=== PATIENT | male | born 1960 | race Caucasian/White ===

== ENCOUNTER → 2018-03-16 10:05 | Outpatient (CLI) | payer BC, SELFPAY ==
--- NOTE | 2018-03-16 10:23 | DI.REPORT_ITS ---
SYMPTOMS/DIAGNOSIS: F/U LT TKA LEFT KNEE: Comparison is made with [id number]. A right total knee prosthesis is again noted, unchanged. No abnormal bony lucencies are seen.
== END ==
PROVIDERS: PCP Nurse Practitioner; Visit Provider Orthopaedic Surgery
DX: Z96.652 Presence of left artificial knee joint (principal); Z47.1 Aftercare following joint replacement surgery
CPT/HCPCS: 73560

== ENCOUNTER 2018-12-27 10:40 | Outpatient (REF) | payer SELFPAY ==
[2018-12-27 14:33] LABS: ALT 24 U/L (12-78); AST 20 U/L (15-37); Albumin 4.1 g/dL (3.4-5.0); Alkaline Phosphatase 77 U/L (46-116); Anion Gap 11.8 mmol/L (3-11); BUN 15 mg/dL (7-18); Bilirubin, Total 0.4 mg/dL (0.2-1.0); CO2 24.2 mmol/L (21.0-32.0); CREATININE 1.19 mg/dL (0.70-1.30); Calcium 8.9 mg/dL (8.5-10.1); Chloride 105 mmol/L (98-107); Cholesterol 172 mg/dL (50-200); Glucose 113 mg/dL (70-100); HDL Cholesterol 36 mg/dL (40-60); LDL CHOLESTEROL 112 mg/dL (<100); Potassium 4.6 mmol/L (3.5-5.1); Sodium 141 mmol/L (136-145); Triglyceride 170 mg/dL (30-150)
== END 2018-12-27 11:00 ==
LOC: NCHCN 10:40
PROVIDERS: PCP Nurse Practitioner; Visit Provider Nurse Practitioner
DX: I10 Essential (primary) hypertension (principal)
CPT/HCPCS: 80053; 80061; 83721

== ENCOUNTER 2019-01-31 08:28 | Outpatient (REF) | payer BC, SELFPAY ==
[2019-01-31 13:20] LABS: Hemoglobin A1C 5.9 % (4.5-6.2)
[2019-02-01 07:08] LABS: Vitamin D 25 Total 26.1 ng/ml (30-100)
== END 2019-01-31 08:48 ==
LOC: NCHCN 08:28
PROVIDERS: PCP Nurse Practitioner; Visit Provider Nurse Practitioner
DX: R53.83 Other fatigue (principal)
CPT/HCPCS: 82306; 83036

== ENCOUNTER 2019-01-31 09:41 | Outpatient (CLI) | payer BC, SELFPAY ==
--- NOTE | 2019-01-31 09:39 | DI.RAD_ITS ---
SYMPTOMS/DIAGNOSIS: KNEE PAIN RIGHT KNEE: There is slight narrowing of the medial tibiofemoral joint space. The joint spaces are otherwise unremarkable. The bony structures intact. SUMMARY: Findings consistent with mild right knee DJD.
== END 2019-01-31 10:01 ==
PROVIDERS: PCP Nurse Practitioner; Visit Provider Physician Assistant
DX: M25.561 Pain in right knee (principal); M17.11 Unilateral primary osteoarthritis, right knee
CPT/HCPCS: 73562

== ENCOUNTER 2019-06-19 08:56 | Outpatient (CLI) | payer BC, SELFPAY ==
--- NOTE | 2019-06-19 08:03 | HPE_ITS ---
Date of service: 06/19/19 Assessment and Plan Assessment and plan (1) Primary osteoarthritis of right knee: Status: Chronic Assessment and plan: Right total knee replacement. Details of surgery were discussed with patient as well as risks and pertinent anatomy. All questions were answered. History of Present Illness History of Present Illness Chief Complaint: Right knee pain Narrative: Shane culver omes in today for a preop history and physical for a right total knee replacement. He has had right knee pain for many months now, and it bothers him especially with long periods of ambulation, or going downstairs. He had an injection in that right knee which gave him significant relief, but only for about 1 month. Since then the pain has been coming back. He has had x-rays done in the office which revealed some pretty significant arthritis in the right knee especially on the medial joint line. Since he has failed conservative treatment, Dr. Bello does offer a right total knee replacement at this time. Despite imperfect results on the left side so far, he elects to proceed with a right total knee replacement. Pertinent Surgical Information Shane had a difficult time with urination after his last total knee replacement in 2017. He did have to be catheterized while staying in the hospital due to an inability to void. Patient denies history of CVA, SD, angina, COPD, renal or liver disorders, hepatitis, bleeding disorders, diabetes, immune or thyroid disorders. No complications from anesthesia. Review of Systems Constitutional Constitutional: Denies fever(s) ENT Ears, Nose, Mouth, and Throat: Denies dizziness and Denies sore throat Cardiovascular Cardiovascular: Denies chest pain, Denies chest pain with activity, Denies palpitations and Reports dyspnea on exertion Respiratory Respiratory: Denies cough and Reports dyspnea on exertion Gastrointestinal Gastrointestinal: Denies abdominal pain, Denies melena, Denies hematochezia, Denies diarrhea, Denies nausea and Denies vomiting Genitourinary Genitourinary: Denies hematuria and Denies dysuria Neurologic Neurologic: Denies dizziness Endocrine Endocrine: Denies palpitations [facility] Medical History (Updated 06/19/19 @ 17:10 by ORACIO Kelly) [place] esophagus (Acute) Depression (Chronic) GERD (gastroesophageal reflux disease) (Chronic) History of asthma (Acute) Environmental Hypertension (Chronic) BRAULIO on CPAP (Chronic) Osteoarthritis (Chronic) Surgical History (Updated 06/19/19 @ 17:12 by ORACIO Kelly) History of appendectomy (Chronic) History of colonoscopy (Chronic) History of esophagogastroduodenoscopy (EGD) (Chronic) History of Pastor fundoplication (Chronic) History of tonsillectomy (Chronic) History of total left knee replacement (TKR) (Acute 07/27/17) Dr. Her Social History Smoking/Tobacco Use Status: Former Tobacco Use Drug use: Never Do you feel safe in your relationship?: Yes Meds Home Medications and Allergies Home Medications Medication Instructions Recorded Confirmed Type omeprazole 40 mg PO DAILY 05/19/14 06/19/19 History ondansetron [Zofran ODT] 1 tab PO PRN 06/15/15 06/19/19 History bupropion HCl 300 mg PO DAILY 06/26/17 06/19/19 History ropinirole 0.25 mg PO HS 06/26/17 06/19/19 History hydrochlorothiazide 12.5 mg tablet 12.5 mg PO DAILY 01/31/19 06/19/19 History tramadol 50 mg tablet 50 mg PO BID PRN #14 tab 05/10/19 06/19/19 Rx cholecalciferol (vitamin D3) 1,000 unit PO DAILY 06/19/19 06/19/19 History [Vitamin D3] Allergies Allergy/AdvReac Type Severity Reaction Status Date / Time egg Allergy Intermediate Nausea Unverified 06/19/19 09:08 ibuprofen AdvReac Severe Significant Verified 06/19/19 09:32 hx Barretts, bleeding ulcers, GERD Exam [facility] Head: normocephalic and atraumatic General nose exam: no nasal discharge Throat: uvula midline and no uvular edema Other: soft palate rises symmetrically, no erythema Eyes Conjunctivae: conjunctivae normal Sclera: sclerae normal Pupils: PERRL Resp Effort & Inspection: normal respiratory effort Auscultation: clear to auscultation bilaterally and no wheezes Cardio Rate: regular rate Rhythm: regular rhythm Heart Sounds: S1 normal, S2 normal and no murmurs GI Palpation: soft, no hepatosplenomegaly and nontender Auscultation: normal bowel sounds Results Labs Result diagrams: 06/19/19 10:30 06/19/19 10:30
[2019-06-19 10:48] LABS: HCT 44.8 % (40.0-50.0); HGB 15.6 g/dL (13.5-17.5); Mean Corp. HGB Concentration 34.8 g/dL (32.0-36.0); Mean Corpuscular Hemoglobin 30.7 pg (27.0-33.0); Mean Corpuscular Volume 88.2 fL (80-95); Mean Platelet Volume 10.2 fL (8.0-11.0); Platelet Count 218 x1000/uL (130-400); RBC 5.08 m/cumm (4.50-6.00); RBC Distribution Width 12.3 % (11.8-14.1); White Blood Cell Count 6.33 k/cumm (4.4-10.8)
[2019-06-19 11:48] LABS: Anion Gap 9.4 mmol/L (3-11); BUN 20 mg/dL (7-18); CO2 27.6 mmol/L (21.0-32.0); CREATININE 1.25 mg/dL (0.70-1.30); Calcium 9.3 mg/dL (8.5-10.1); Chloride 104 mmol/L (98-107); Estimated GFR 58.92 (mL/min/1.73m2); Glucose 86 mg/dL (70-100); Potassium 4.6 mmol/L (3.5-5.1); Sodium 141 mmol/L (136-145)
== END 2019-06-19 09:16 ==
PROVIDERS: PCP Nurse Practitioner; Visit Provider Student in an Organized Health Care Education/Training Program
DX: M25.561 Pain in right knee (principal); M17.11 Unilateral primary osteoarthritis, right knee; Z01.818 Encounter for other preprocedural examination; Z01.812 Encounter for preprocedural laboratory examination
CPT/HCPCS: 36415; 80048; 85027; NC

== ENCOUNTER 2019-06-27 12:13 | Inpatient (IN) | payer BC, SELFPAY ==
--- NOTE | 2019-06-19 10:45 | PDOC.CMPRO ---
- If Service Date Differs Date of service: 06/19/19 Time of Service: 10:45 Care Management Progress Note CM met with Shane and his Kaela during his pre op appointment. Shane is scheduled for a total right knee replacement on 06/27/2019. They expressed concern about Shane's prior experience at [facility] when he had his left knee replacement two years ago. They stated that he was here for five days and that his pain was not kept under control. CM reassured them, expressing that a CM will be available to advocate for Shane. Shane and his live in [place] in a single floor residence with 2-3 steps to get in the house. Shane is currently laid off, as he works seasonally. They have two adult children and six grandchildren who all live locally. He has access to a FWW if needed. He is independent at baseline, and his will drive him home when ready via private vehicle. CM provided blank copies of the [place] AD, as requested by Shane and Kaela. Kaela will assist Shane in setting up the Portal. CM provided Shane with CM contact information in the event that they need assistance.
[2019-06-27] VITALS (8 sets, daily range): BP systolic 115–144; BP diastolic 78–98; PULSE 58–82; RESP 12–18; TEMP 36.1–36.5; O2SAT 94–97
[2019-06-27] MEDS: Lactated Ringers 1,000 ML 80 ML IV ×3 (13:01→18:31)
[2019-06-27] MEDS: Celecoxib 200 MG CAP 400 MG PO (13:02)
[2019-06-27] MEDS: Gabapentin 300 MG CAP PO ×2 (13:02→22:20)
[2019-06-27] MEDS: Acetaminophen 500 MG TAB 1000 MG PO ×2 (13:02→19:40)
[2019-06-27] MEDS: Bupivacaine 0.25% Pres-Free 30 ML VIAL ×2 (14:28→16:20)
[2019-06-27] MEDS: ceFAZolin 2 GM/50 ML BAG IVPB (15:01)
[2019-06-27] MEDS: Ketorolac 30 MG/ML VIAL (16:20)
[2019-06-27] MEDS: Normal Saline 20 ML VIAL (16:20)
[2019-06-27] MEDS: Bupivacaine LIPOSOME/PF 133 MG/10 ML VIAL IJ (16:20)
--- NOTE | 2019-06-27 17:20 | W.PM.OP ---
Date of service: 06/27/19 Time of Service: 17:20 Operative Note Operative Note DATE OF PROCEDURE: 06/27/19 PRE-OP DIAGNOSIS: Right Knee Osteoarthritis POST-OP DIAGNOSIS: same PROCEDURE: Right Total Knee Replacement SURGEON: Ottoniel Bello PLASMA TABLE OPERATOR: Disha Trinidad ANESTHESIA: regional and spinal ESTIMATED BLOOD LOSS: 250 PATHOLOGY: none sent TOURNIQUET TIME: 32 COMPLICATIONS: None Patient was transported to: PACU Patient's condition: stable Implants: 1. Depuy Attune Posterior Stabilized Femoral Component, Size 7 2. Depuy Attune Fixed Platform Tibial Component, Size 6 3. Depuy Attune 7x7mm Fixed, Stabilized Poly 4. Depuy Attune Patellar Component, Size 38mm Indications: I have seen Shane in clinic for symptoms of RIGHT knee arthritis, confirmed with radiographic findings. Shane has exhausted nonoperative methods and was having significant limitations in daily function and desired better function and less pain. I discussed the technical details of a knee replacement. I explained the risks of the procedure to include, but not limited to, bleeding, infection, pain, stiffness, fracture, damage to nerves and vessels, damage to muscles and tendons, loosening, need for repeat procedure, blood clot and cardiopulmonary demise. Despite these risks, Shane elected to proceed. Findings: There was significant signs of arthritis throughout the medial compartment with mild arthrosis of the lateral tibia and patella. Procedure Description: Shane was greeted in the preoperative holding area where the correct side was identified and marked. The consent was reviewed with the patient and signed. The history and physical was updated. All questions were answered. Preoperative mediacations were administered: Acetaminophen 1000mg, Celebrex 400mg, and Gabapentin 300mg. An adductor canal block was then administered by the anesthesia team in the PACU. Shane was taken back to the operating room. A spinal anesthestic was then administered. The patient was placed into the supine position on the operating room table. A nonsterile tourniquet was placed high onto the leg but only used for cementing. Posts were placed for positioning during the procedure. All bony prominences were well padded. Prophylactic antibiotics in the form of Cefazolin were administered. 1g of Tranxemic Acid was given intravenously within 30 minutes of incision. The right leg was then prepped with Chloraprep and draped in a standard fashion with impervious stockinette. A second prep with Chloraprep was performed prior to application of Iodine impregnated skin protection. A timeout to confirm correct identity, side and site, procedure, allergies, anesthesia, and medical concerns was performed. With the knee in some flexion, a midline incision was made overlying the knee. Full thickness skin flaps were raised once the extensor mechanism was encountered. These were raised medially and laterally. Any bleeding was controlled with electrocautery. Once the extensor mechanism was fully exposed, a medial parapatellar arthrotomy was performed in a flexed position. All bleeding from the arthrotomy and the geniculate arteries was coagulated. A medial subperiosteal peel was performed with electrocautery to the midcoronal plane. The fat pad was removed while keeping the patellar tendon protected. The anterior distal femur synovium was removed for later visualization. The ACL and PCL were resected and the anterior horn of the lateral meniscus was transected. The knee was then flexed with the patella everted. Large osteophytes from the tibia were removed. Using a step drill, and based on preoperative templating, the femoral canal was entered. This was done with a step drill without any difficulty. The intramedullary distal femoral cut guide was inserted, set to a 5 degree valgus cut and 10mm cut thickness. The distal femoral cut guide was then held in position and pinned. With the soft tissues protected, the distal cut was performed. This was passed over a few times to ensure a planar cut. I then turned attention to the tibia. The extramedullary guide was placed onto the leg. The distal aspect was slid medial to adjust for position of center of ankle and stay in line with shaft of the tibia. Approximately 3-5 degrees of posterior slope was kept in the proximal cutting guide. The center of the guide was aligned with the PCL. The stylus was used to assess cut thickness. The medial side, most involved side, was set for a 4mm cut. This was then held in position and pinned into place with 2 additional pins and a cross pin for stability. The medial and lateral collateral ligaments were protected and the cut was performed. With this completed, it was assessed and noted to be of appropriate dimensions. The guide was removed. A spacer block was inserted and the knee was brought into extension. The 6mm spacer block provided full extension, without hyperextension and with stability of both the medial and lateral collateral ligaments was assessed. The pins from the femur and the tibia were then removed. The distal femur was then sized. The anterior stylus was placed onto the lateral ridge of the anterior femur. This indicated a size 7 femur. The external rotation of the guide was adjusted to 3 degrees to match the epicondylar axis, perpendicular to Mary?s line. The 4-in-1 cutting guide was the placed. The posterior medial femur cut was evaluated and appeared of good thickness. The spacer block was inserted underneath the cutting guide and stability was confirmed in 90 degrees of flexion. An hui wing was used to confirm appropriate position of the anterior cut to avoid notching. This cutting guide was ensured to be flush on the cut surface and then pinned into place with headed pins. While protecting the soft tissues, quad tendon, and collateral ligaments, the anterior and posterior cuts were performed with a saw. The central two pins were removed and the posterior and anterior chamfers were cut next. The notch-cutting guide was placed. This was pinned to lateralize the femoral component as much as possible while keeping it flush on the cut surface. This was then pinned into position. A reciprocating saw was used to make the notch cut. A rasp smoothed the cut surfaces. A trial posterior stabilized femoral component was then inserted, impacted down to the cut surfaces, and the lug holes were drilled. A provisional trial tibial component was placed and the knee was brought through range of motion. The polyethylene was trialed until there was good flexion and extension with excellent stability to the medial and lateral collaterals. The patella was tracking without thumbs. The tibial cut surface was fully exposed. The medial and lateral menisci were removed. The tibia was then sized as a 6. The tibia had been previously marked during trialing to correspond to the center of the tibial component to help with rotation. The trial was aligned to this larissa, approximately rotated to the medial 1/3rd of the tibial tubercle. The trial was pinned into place. The tibia was prepared with a reamer and a keel punch. The knee was then brought into extension and the patella was measured as 27mm. Using the patellar clamp and cut guide, this was resected to a flat surface with at least 13mm of thickness remaining. The size 38 patella fit the best. This was oriented and then clamped into position. The lugs were drilled. The trial components were removed. The final components, except for the polyethylene were opened on the back table. The periosteal and capsular tissues, especially posteriorly, around the knee were then systematically injected with a periarticular cocktail consisting of 50cc 0.25% Marcaine, 30mg Ketorolac, 20cc of Exparal and 50cc of injectable saline. The tourniquet was then inflated to 275mmHg. The knee was thoroughly irrigated with a pulse lavage and dried. On the back table, with the implants opened, the cement was mixed. 2 batches of antibiotic laden cement were prepared with vacuum assistance. After the cement was ready a small amount was placed on to the back side of the tibial component at the keel. A small amount was placed onto the posterior flange of the femur. Cement was manual pressurized and impregnated into the cut surface of the tibia. The tibial component was then inserted into the cut surface and impacted into position. Excess cement was removed and the component was reimpacted. Again, excess cement was removed and our attention was then turned to the femur. The femoral cut surface was once again dried and cement was manually impacted into the cut surface. The femoral component was lined with the lug holes and impacted. Excess cement was removed. It was ensured to be down against the cut surface. The trial polyethylene was then inserted and the leg was brought out into full extension for the duration of the cement curing process, approximately 15min. Cement was lastly manually impacted into the cut surface of the patella and the patellar button was clamped into position and held. During this process attention was turned to the gutters of the knee and for all interfaces for any excess cement. While the cement was hardening, the knee was irrigated with Irrisept chlorhexadine solution. This was allowed to sit in the knee for 3 minutes. After the cement had finally cured, approximately 15min, the clamp was removed from the patella and the knee was taken through range of motion. A size 7mm polyethylene component provided the best range of motion and stability with less than 2mm gapping with medial and lateral stress and full extension without significant hyperextension. The patella was tracking with a no-thumbs technique. The trial poly was removed and once again the knee was checked for any loose, excess, or errant cement. The poly component was then inserted and impacted into position after cleaning and drying the tibial tray. The capsule was then reapproximated with a No. 1 Vicryl at multiple locations. The capsule was finally closed with a No. 2 Stratafix, barbed suture. The tourniquet was then released and the arthrotomy appeared watertight without significant bleeding. The second dosing of 1g TXA was started. Deep tissues were then reapproximated with 0 Vicryl and 2-0 Vicryl. The skin was closed with a running 3-0 Monocryl in a subcuticular fashion. This was reinforced with skin glue. A Mepilex silver dressing was applied along with a [id number] RODRIGUE wrap. A CryoCuff was applied. Shane was transferred to the hospital bed without difficulty an suffering no apparent complication. Shane has a good prognosis. Physical therapy will start today and without restrictions, weight-bearing as tolerated. Aspirin 81mg BID will be used for DVT prophylaxis.
[2019-06-27] MEDS: ceFAZolin 1 GM/50 ML BAG IVPB (22:21)
[2019-06-28 00:14] VITALS: BP 112/71; PULSE 69; RESP 19; TEMP 36; O2SAT 98
[2019-06-28] MEDS: oxyCODONE 5 MG TAB PO ×3 (01:41→13:32)
[2019-06-28 06:05] VITALS: BP 123/75; PULSE 60; RESP 16; TEMP 36.6; O2SAT 98
[2019-06-28] MEDS: ceFAZolin 1 GM/50 ML BAG IVPB ×2 (06:07→13:32)
[2019-06-28] MEDS: Lactated Ringers 1,000 ML 80 ML IV (06:07)
--- NOTE | 2019-06-28 07:43 | W.PM.DS.N ---
Date of service: 06/28/19 Time of Service: 07:45 DS: Diagnosis Discharge Diagnosis (1) Primary osteoarthritis of right knee: Status: Chronic Discharge Plan Disposition Patient Disposition: HOME Condition: Good Discharge Details Reason For Visit: (r) KNEE DJD Admit Date/Time: 06/27/19 12:13 Admit Provider: Ottoniel Bello Attending Provider: Ottoniel Bello Primary Care Provider: Zeynep Hughes Hospital Course Hospital Course: Patient was admitted to the medical/surgical floor following the procedure. It was tolerated well without any notable medical, surgical, or anesthetic complications. Mobilization began postoperatively. The brenner catheter was removed and voiding spontaneously. Vitals were stable. Physical therapy worked with the patient and was cleared for discharge home. No acute medical issues. Home Meds and New Rx's Prescriptions: New celecoxib 200 mg capsule 200 mg PO DAILY Qty: 30 RF: 1 aspirin 81 mg tablet,delayed release (DR/EC) 81 mg PO BID Qty: 60 RF: 0 acetaminophen 500 mg tablet 1,000 mg PO Q8H PRN (Reason: pain) Qty: 90 RF: 3 gabapentin 300 mg capsule 300 mg PO QHS Qty: 7 RF: 0 oxycodone 5 mg tablet 5 mg PO Q4H Qty: 18 RF: 0 Continued hydrochlorothiazide 12.5 mg tablet 12.5 mg PO DAILY RF: 0 omeprazole 40 MG capsule,delayed release(DR/EC) 40 mg PO DAILY RF: 0 ondansetron [Zofran ODT] 4 MG tablet,disintegrating 1 tab PO PRNRF: 0 ropinirole 0.25 MG tablet 0.25 mg PO HS RF: 0 bupropion HCl 300 MG tablet extended release 24 hr 300 mg PO DAILY RF: 0 cholecalciferol (vitamin D3) [Vitamin D3] 1,000 unit Capsule 1,000 unit PO DAILY RF: 0 Discontinued tramadol 50 mg tablet 50 mg PO BID PRN (Reason: pain) Qty: 14 RF: 0 acetaminophen [Acetaminophen Extra Strength] 500 mg Tablet 1,000 mg PO PRN PRNRF: 0 Discharge Instructions Additional Instructions: Dr. Bello?s Total Knee Discharge Instructions Activity: The most important activity is to walk. You should try to take short walks a few times a day. It is important that when resting you work on keeping the knee straight. Avoid putting a pillow behind the knee as this will encourage flexion. Work on range of motion exercises as provided by Physical Therapy. - Start outpatient physical therapy within 2 weeks. - You should wear the WILLIS hose on both legs for 2 weeks. Dressing: Keep the surgical dressing in place for at least one week. After the first week it may be removed and replace with light gauze and tape or nothing. It may get wet after 3 days but avoid soaking the dressing. If it gets wet, just lightly pat dry. Medications: - You should take Tylenol and anti-inflammatory Celebrex as your primary pain control medications - You have been prescribed a stronger pain medication Oxycodone for breakthrough pain, take as needed as prescribed. - You should continue Omeprazole to help reduce stomach acid and reflux. - You will be taking Aspirin 81mg twice a day for DVT prevention unless instructed otherwise. - If you have constipation you should take Colace or Miralax (both [id number]). It takes most people 3-4 days to have a bowel movement. Follow-up: 2 weeks Referrals: Ottoniel Bello MD [ [facility] STAFF PHYSICIAN] - Activity:: Activity as Tolerated Equipment/Supplies:: Walker Diet:: As Tolerated Discharge Orders Discharge Orders: Discharge Order (Routine); Ordered 06/28/19 Ordered By: Ottoniel Bello DS: Summary Status at Discharge Functional status at discharge: uses cane/walker Overall status at discharge: patient is progressing back to baseline Mental Status: mental status grossly normal Speech and Movement: speech and movement normal Mood: congruent mood Affect: normal affect Exam Psych Mental Status: mental status grossly normal Speech and Movement: speech and movement normal Mood: congruent mood Affect: normal affect DS: Data Vitals/I&O Vitals and I&O: Vital Signs Temperature 36 C L 06/28/19 00:14 Temperature Source Tympanic 06/28/19 00:14 Pulse 69 06/28/19 00:14 Pulse Rhythm Regular 06/28/19 00:11 Respiratory Rate 19 06/28/19 00:14 Respiratory Effort 06/28/19 00:11 Respiratory Depth Normal 06/28/19 00:11 Respiratory Pattern Normal 06/28/19 00:11 Blood Pressure 112/71 06/28/19 00:14 Pulse Oximetry 98 06/28/19 00:14 Respiratory End-tidal CO2 32 06/27/19 17:50 Oxygen Delivery Method Cpap 06/28/19 00:14 Oxygen Flow Rate 0 06/27/19 18:49 Pain Level 8 06/28/19 06:06 Intake & Output 06/27/19 06/27/19 06/28/19 11:59 23:59 11:59 Intake Total 2203.333 / 2203.333 1021.333 / 1021.333 Output Total 350 / 350 900 / 900 Balance 1853.333 / 1853.333 121.333 / 121.333 Weight 93.2 kg Intake: IV 1713.333 / 3341.780 9068.333 / 1021.333 Oral 490 / 490 Output: Urine 100 / 100 900 / 900 Estimated Blood Loss 250 / 250 Other: Urine Color Yellow Yellow Straw Urine Appearance Clear Clear Emesis Description None PFSH Medical History [place] esophagus (Acute) Depression (Chronic) GERD (gastroesophageal reflux disease) (Chronic) History of asthma (Acute) Environmental Hypertension (Chronic) BRAULIO on CPAP (Chronic) Osteoarthritis (Chronic) Surgical History History of appendectomy (Chronic) History of colonoscopy (Chronic) History of esophagogastroduodenoscopy (EGD) (Chronic) History of Pastor fundoplication (Chronic) History of tonsillectomy (Chronic) History of total left knee replacement (TKR) (Acute 07/27/17) Dr. Her Social History Smoking/Tobacco Use Status: Former Tobacco Use Drug use: Never Do you feel safe in your relationship?: Yes
[2019-06-28 07:45] VITALS: BP 109/66; PULSE 84; RESP 18; TEMP 36.1; O2SAT 96
[2019-06-28] MEDS: Aspirin E.C. 81 MG TABEC PO (09:08)
[2019-06-28] MEDS: hydroCHLOROthiazide 12.5 MG TAB PO (09:08)
[2019-06-28] MEDS: Omeprazole 20 MG CAPCR 40 MG PO (09:08)
[2019-06-28] MEDS: Cholecalciferol (Vitamin D3) 1,000 UNIT TAB 1000 UNITS PO (09:08)
[2019-06-28] MEDS: buPROPion-XL 150 MG TABCR 300 MG PO (09:08)
[2019-06-28] MEDS: Tamsulosin 0.4 MG CAPCR PO (09:09)
[2019-06-28] MEDS: Acetaminophen 500 MG TAB 1000 MG PO ×2 (09:09→13:33)
--- NOTE | 2019-06-28 10:03 | PT.INIE ---
Date of service: 06/28/19 Time of Service: 09:28 PT Notes Physical Therapy Inpatient Initial Evaluation Date: 06/28/2019 Referring Doctor: Ottoniel Bello MD PT Orders: PT CONSULT: Status post right TKA Precautions: Fall. Standard. WBAT on right LE. Patient Profile/Admitting Diagnosis: Patient is a 58-year-old male who is status post right total knee arthroplasty on POD 1 due to primary unilateral osteoarthritis of right knee. PMHX: Medical History (Updated 06/19/19 @ 17:10 by ORACIO Kelly) Wilson esophagus (Acute) Depression (Chronic) GERD (gastroesophageal reflux disease) (Chronic) History of asthma (Acute) Environmental Hypertension (Chronic) BRAULIO on CPAP (Chronic) Osteoarthritis (Chronic) Surgical History (Updated 06/19/19 @ 17:12 by ORACIO Kelly) History of appendectomy (Chronic) History of colonoscopy (Chronic) History of esophagogastroduodenoscopy (EGD) (Chronic) History of Pastor fundoplication (Chronic) History of tonsillectomy (Chronic) History of total left knee replacement (TKR) (Acute 07/27/17) Dr. Her Social History/Home Situation: Patient lives alone with in a 1 floor house with 2 steps to enter without rails. Patient is independent with all transfer and ambulation task performance without any assistive device prior to admission. Equipment Owned/DME: Front-wheeled walker, bilateral axillary crutches, SPC Subjective: Patient is agreeable to a PT consult. Looks forward to having his Zamudio catheter removed. He denies pain on the right knee. He denies headache, dizziness, and chest pain throughout PT session. He report mild discomfort on the right knee which he attributes to tight OMAR wraps. Patient states that he stayed numb on the right LE for quite a while last night. Objective: General Observation: Patient seen resting in bed upon arrival of PT. Anti-thromboembolic pump on left leg. TEDS on left leg. Omar wraps on right knee. IV in the right UE. Zamudio catheter in place. Mental Status: Alert and oriented x4 Pain: 0/10 ROM: Right Upper Extremity: Shoulder Flexion WFL. Shoulder abduction WFL. Elbow flexion WFL. Wrist flexion WFL. Opening and closing of hand WFL. Left Upper Extremity: Shoulder Flexion WFL. Shoulder abduction WFL. Elbow flexion WFL. Wrist flexion WFL. Opening and closing of hand WFL. Right Lower Extremity: Hip flexion WFL. Hip abduction WFL. Knee flexion 0 to 105 degrees in the standing position done actively. Knee extension -3 degrees. Ankle dorsiflexion WFL. Ankle plantarflexion WFL. Left Lower Extremity: Hip flexion WFL. Hip abduction WFL. Knee flexion WFL. Knee extension -5 degrees. Ankle dorsiflexion WFL. Ankle plantarflexion WFL. Strength: Right Upper Extremity: Shoulder flexors 5/5. Shoulder abductors 5/5. Elbow flexors 5/5. Elbow extensors 5/5. School Child Care Attendant strong. Left Upper Extremity: Shoulder flexors 5/5. Shoulder abductors 5/5. Elbow flexors 5/5. Elbow extensors 5/5. School Child Care Attendant strong. Right Lower Extremity: Hip flexors 5/5. Hip abductors 5/5. Knee flexors 3-/5. Knee extensors 3-/5. Ankle dorsiflexors 5/5. Ankle plantarflexors 5/5. Left Lower Extremity:Hip flexors 5/5. Hip abductors 5/5. Knee flexors 5/5. Knee extensors 3-/5. Ankle dorsiflexors 5/5. Ankle plantarflexors 5/5. Sensation: Intact as to pain and pressure on bilateral lower extremities. Bed Mobility/Transfers: Rolling independent Supine to sit independent Sit to supine independent Sit to stand independent Stand to sit independent Bed to chair independent Chair to bed independent Gait: Patient is able to tolerate level surface ambulation of 120 feet using front wheeled walker with reciprocal gait and symmetrical step length and step height requiring only supervision. He did complain of mild discomfort on the back of the right knee due to tight OMAR wraps. Patient was also able to tolerate three 4 inch steps and two 6 inch steps with step to gait pattern while holding onto bilateral rails requiring only supervision. Balance: Static Sitting: Normal Dynamic Sitting: Normal Static Standing: Good Dynamic Standing: Fair Special Tests: Mobility Limitations Standardized Measure [facility] AM-PAC 6 clicks Basic Mobility Inpatient Short Form: Raw Score: 23 CMS Score: 11% deficit Informed Consent/Education: Patient instructed in purpose of PT consult and plan of care. Patient was also instructed on performing bilateral quadriceps setting, bilateral controlled setting x10 reps as well as ankle pumping x10 reps every hour. Assessment: Patient is a 58-year-old male who is status post right total knee arthroplasty on POD 1 due to primary unilateral osteoarthritis of right knee. He is pleasant and cooperative. He is motivated to return to home soon as he is medically cleared. His prognosis for regaining prior level of function is good. Patient presents with clinical signs and symptoms consistent with current/admitting diagnoses that have resulted to mobility limitations, gait instability, generalized weakness, and impairment of motor control as demonstrated by the following impairment level findings: 1. Decreased strength to R knee major muscle groups 2. Impaired standing balance 3. Limitation of joint range of motion in right knee joint Impairments are contributing to the following functional limitations: 1. Inability to safely ambulate without assistive device and physical assistance 2. Increase completion time for mobility ADL performance 3. Increased fall risk 4. Inability to negotiate steps alone safely Patient is assessed as a 54926 moderate complexity based on the following: History: Patient is a 58-year-old male who is status post right total knee arthroplasty on POD 1 due to primary unilateral osteoarthritis of right knee. He is pleasant and cooperative. He is motivated to return to home soon as he is medically cleared. His prognosis for regaining prior level of function is good. Examination: Demonstrable impairment in strength, balance, and range of motion with underlying impairments and functional limitations as documented above Presentation:Evolving Decision Makin moderate complexity Goals: Goals X1 week 1. Supine-Sit independent 2. Sit-Supine independent 3. Sit-Stand independent 4. Stand-Sit independent 5. Bed-Chair independent 6. Chair-Bed independent 7. Independent gait on level surface with use of least restrictive device for at least 300 feet without report of pain nor dyspnea 8. Independent with home exercise program 9. Good static and dynamic standing balance/tolerance Plan of Care/Treatment Plan: 1-2x/day, 7 days/week x 1 week. Plan of care has been reviewed with the ETCHER MACHINE providing the service under Physical Therapy direction. Initiate Physical Therapy intervention for strengthening, bed mobility, transfers, gait, stairs, balance training, use of assistive device. DISCHARGE RECOMMENDATIONS: May discharge to home with once medically cleared by orthopedic surgeon. May benefit from skilled physical therapy services according to orthopedic surgeon's timeline recommendations. Patient will be educated and trained on home exercise program per TKA exercise protocol in preparation for outpatient physical therapy services. TREATMENT CODE/TIME: 39285 x 33 minutes beginning at 9:28 AM. Thank you very much for this referral. Darlyn Vieyra PT, DPT, CLT [facility]
[2019-06-28 11:05] VITALS: BP 124/84; PULSE 75; RESP 18; TEMP 36.3; O2SAT 95
--- NOTE | 2019-06-28 15:54 | PT.INTREAT ---
Date of service: 06/28/19 Time of Service: 15:54 PT Notes Inpatient Physical Therapy Treatment Note [facility] Date: 06/28/19 SUBJECTIVE: Shane is agreeable to participating in PT. He reports that he is feeling good and feels that he is ready to return to home. OBJECTIVE: PAIN: No c/o pain BED MOBILITY/TRANSFERS Supine-sit: I with HOB flat Sit-stand: I Stand-sit: I GAIT Assistive Device: FWW Weight bearing: WBAT R Assist: I Distance: 200' STAIRS: Up/down 3x4 and 2x6 using B rails and a step-over pattern, independently ASSESSMENT: Patient tolerated session well, without complaint. He was able to demonstrate independence with all bed mobility and transfers, at this point. PLAN: As per primary PT TREATMENT CODE/TIME: 15 minutes; 48113
--- NOTE | 2019-06-29 16:03 | INDS_ITS ---
Date of service: 06/29/19 Time of Service: 16:03 PT Notes Inpatient Physical Therapy Discharge Summary Dates: 06/29/2019 Dates of Service: 06/28/2019 This is a clinical summary of care provided on the duration of dates listed above. No charge was made in the completion of this documentation. Referring Doctor: Ottoniel Bello MD PT Orders: PT CONSULT: Status post right TKA Precautions: Fall. Standard. WBAT on right LE. Patient Profile/Admitting Diagnosis: Patient is a 58-year-old male who is status post right total knee arthroplasty on POD 1 due to primary unilateral osteoarthritis of right knee. PMHX: Medical History (Updated 06/19/19 @ 17:10 by ORACIO Kelly) Wilson esophagus (Acute) Depression (Chronic) GERD (gastroesophageal reflux disease) (Chronic) History of asthma (Acute) Environmental Hypertension (Chronic) BRAULIO on CPAP (Chronic) Osteoarthritis (Chronic) Surgical History (Updated 06/19/19 @ 17:12 by ORACIO Kelly) History of appendectomy (Chronic) History of colonoscopy (Chronic) History of esophagogastroduodenoscopy (EGD) (Chronic) History of Pastor fundoplication (Chronic) History of tonsillectomy (Chronic) History of total left knee replacement (TKR) (Acute 07/27/17) Dr. Her Social History/Home Situation: Patient lives alone with in a 1 floor house with 2 steps to enter without rails. Patient is independent with all transfer and ambulation task performance without any assistive device prior to admission. Equipment Owned/DME: Front-wheeled walker, bilateral axillary crutches, SPC Subjective: NT Objective: General Observation: NT Mental Status: NT Pain: NT ROM: Right Upper Extremity: Shoulder Flexion WFL. Shoulder abduction WFL. Elbow flexion WFL. Wrist flexion WFL. Opening and closing of hand WFL. Left Upper Extremity: Shoulder Flexion WFL. Shoulder abduction WFL. Elbow flexion WFL. Wrist flexion WFL. Opening and closing of hand WFL. Right Lower Extremity: Hip flexion WFL. Hip abduction WFL. Knee flexion 0 to 105 degrees in the standing position done actively. Knee extension -3 degrees. Ank le dorsiflexion WFL. Ankle plantarflexion WFL. Left Lower Extremity: Hip flexion WFL. Hip abduction WFL. Knee flexion WFL. Knee extension -5 degrees. Ankle dorsiflexion WFL. Ankle plantarflexion WFL. Strength: Right Upper Extremity: Shoulder flexors 5/5. Shoulder abductors 5/5. Elbow flexors 5/5. Elbow extensors 5/5. Sorting And Folding Supervisor strong. Left Upper Extremity: Shoulder flexors 5/5. Shoulder abductors 5/5. Elbow flexors 5/5. Elbow extensors 5/5. Sorting And Folding Supervisor strong. Right Lower Extremity: Hip flexors 5/5. Hip abductors 5/5. Knee flexors 3-/5. Knee extensors 3-/5. Ankle dorsiflexors 5/5. Ankle plantarflexors 5/5. Left Lower Extremity:Hip flexors 5/5. Hip abductors 5/5. Knee flexors 5/5. Knee extensors 3-/5. Ankle dorsiflexors 5/5. Ankle plantarflexors 5/5. Sensation: Intact as to pain and pressure on bilateral lower extremities. Bed Mobility/Transfers: Rolling independent Supine to sit independent Sit to supine independent Sit to stand independent Stand to sit independent Bed to chair independent Chair to bed independent Gait: Patient is able to tolerate level surface ambulation of 200 feet using front wheeled walker with reciprocal gait and symmetrical step length and step height requiring only supervision. He did complain of mild discomfort on the back of the right knee due to tight RODRIGUE wraps. Patient was also able to tolerate three 4 inch steps and two 6 inch steps with step to gait pattern while holding onto bilateral rails requiring only supervision. Balance: Static Sitting: Normal Dynamic Sitting: Normal Static Standing: Good Dynamic Standing: Fair Assessment: Patient is a 58-year-old male who is status post right total knee arthroplasty on POD 1 due to primary unilateral osteoarthritis of right knee. He is pleasant and cooperative. He is motivated to return to home soon as he is medically cleared. His prognosis for regaining prior level of function is good. Patient continues to present with clinical signs and symptoms consistent with current/admitting diagnoses that have resulted to mobility limitations, gait instability, generalized weakness, and impairment of motor control as demonstrated by the following impairment level findings: 1. Decreased strength to R knee major muscle groups 2. Impaired standing balance 3. Limitation of joint range of motion in right knee joint Impairments continue to contribute to the following functional limitations: 1. Inability to safely ambulate without assistive device and physical assistance 2. Increase completion time for mobility ADL performance 3. Increased fall risk 4. Inability to negotiate steps alone safely Goals: Goals X1 week 1. Supine-Sit independent MET 2. Sit-Supine independent MET 3. Sit-Stand independent MET 4. Stand-Sit independent MET 5. Bed-Chair independent MET 6. Chair-Bed independent MET 7. Independent gait on level surface with use of least restrictive device for at least 300 feet without report of pain nor dyspnea NOT MET 8. Independent with home exercise program NOT MET 9. Good static and dynamic standing balance/tolerance NOT MET DISCHARGE RECOMMENDATIONS: May discharge to home with once medically cleared by orthopedic surgeon. May benefit from skilled physical therapy services according to orthopedic surgeon's timeline recommendations. Patient will be educated and trained on home exercise program per TKA exercise protocol in preparation for outpatient physical therapy services. TREATMENT CODE/TIME: AL Thank you very much for this referral. Darlyn Vieyra PT, DPT, CLT [facility]
== END 2019-06-28 15:24 | disposition home or self-care (01) | DRG 470 ==
LOC: PDS 12:14 → MS 18:15
PROVIDERS: Admitting Provider Student in an Organized Health Care Education/Training Program; PCP Nurse Practitioner; Visit Provider Student in an Organized Health Care Education/Training Program
PROC: 0SRC0J9 Replacement of Right Knee Joint with Synthetic Substitute, Cemented, Open Approach (ICD-10-PCS; CPT 27447; principal; 2019-06-27 14:45)
DX: M17.11 Unilateral primary osteoarthritis, right knee (principal); M25.561 Pain in right knee; Z96.651 Presence of right artificial knee joint; K21.9 Gastro-esophageal reflux disease without esophagitis; F32.9 Major depressive disorder, single episode, unspecified; I10 Essential (primary) hypertension; G47.33 Obstructive sleep apnea (adult) (pediatric)
CPT/HCPCS: 27447; 76942; 97162; 97530; NC; J0690; J1100; J1885; J2250; J2405

== ENCOUNTER 2019-07-16 14:31 | Outpatient (CLI) | payer BC, SELFPAY ==
--- NOTE | 2019-07-16 13:26 | DI.RAD_ITS ---
EXAM: XR KNEE RT 1V INDICATION: 1st post op. COMPARISON: XR knee RT 3V AP,lat,john from 01/31/2019 TECHNIQUE: 2D digital imaging was performed. FINDINGS: There are now postsurgical changes of a right total knee replacement. The orthopedic hardware appear s in good position. No evidence of hardware failure is seen. The bones are intact. The soft tissue s are unremarkable. IMPRESSION: Right TKR.
--- NOTE | 2019-07-16 13:29 | DI.RAD_ITS ---
EXAM: XR STANDING ALIGNMENT INDICATION: 1st post op. COMPARISON: No exams were available for comparison TECHNIQUE: 2D digital imaging was performed. FINDINGS: The patient has bilateral total knee replacements. The right lower extremity measures 89.6 centimete rs. The left lower extremity measures 89.8 centimeters.
== END 2019-07-16 14:51 ==
PROVIDERS: PCP Nurse Practitioner; Visit Provider Student in an Organized Health Care Education/Training Program
DX: Z96.653 Presence of artificial knee joint, bilateral (principal); Z47.1 Aftercare following joint replacement surgery
CPT/HCPCS: 73560; 77073

== ENCOUNTER 2020-02-21 00:19 | Outpatient (CLI) | payer BC, SELFPAY ==
[2020-02-21 09:12] LABS: CREATININE 1.02 mg/dL (0.70-1.30)
--- NOTE | 2020-02-21 10:09 | DI.CT_ITS ---
EXAM: CT ABDOMEN PELVIS W TECHNIQUE: Imaging Protocol: Axial computed tomography images with coronal and sagittal reformatted images were created and reviewed CONTRAST MATERIAL: Intravenous: Omnipaque 350 Contrast volume: 100 ml Contrast route:IV - Oral: yes COMPARISON: CT ABD PELVIS WITH CONTRAST from 06/15/2015 FINDINGS: There is a small to moderate size hiatal hernia. The lung bases are clear. There are 2 small defec ts in the anterior abdominal wall above the level of the umbilicus which show a small amount of fat h erniating through. There is also small amount of fat at the umbilicus. A few liver cysts are noted. The gallbladder, spleen, adrenals and right kidney are unremarkable. There is a small cyst at the upper pole of the left kidney. The pancreas shows some fatty infiltration. There is a diverticulum of the descending duodenum. There is prominent diverticulosis of the lower descending and proximal si gmoid colon. There is no evidence of diverticulitis. The small bowel is unremarkable. The aorta shows calcification but is normal in diameter. The prostate is mildly enlarged. The bladder is unremarkabl e. IMPRESSION: Two small defects in the midline of the upper the abdominal wall containing a small amount of herniat ed fat. A small fatty containing umbilical hernia is also seen. RADIATION DOSE DELIVERED: Total DLP Total DLP DATA REPOSITORY: All CT scans at this facility are submitted to the National Radiology Data Registry (NRDR) Dose Index Registry (DIR) with the [employer] ([employer]). RADIATION OPTIMIZATION: All CT scans at this facility use at least one of these dose optimization te chniques: automated exposure control; mA and/or kV adjustment per patient size (includes targeted exa ms where dose is matched to clinical indication); or iterative reconstruction.
[2020-02-21] MEDS: Omnipaque 350 MG/ML 100 ML BTL IV (10:10)
[2020-02-21] MEDS: Omnipaque 350 MG/ML 50 ML BTL PO (10:10)
== END 2020-02-21 00:39 ==
PROVIDERS: PCP Nurse Practitioner; Visit Provider Surgery
DX: R19.00 Intra-abdominal and pelvic swelling, mass and lump, unspecified site (principal); K44.9 Diaphragmatic hernia without obstruction or gangrene; K76.89 Other specified diseases of liver; N28.1 Cyst of kidney, acquired; K57.31 Diverticulosis of large intestine without perforation or abscess with bleeding; N40.0 Benign prostatic hyperplasia without lower urinary tract symptoms; K42.9 Umbilical hernia without obstruction or gangrene
CPT/HCPCS: 74177; 82565; J3490; Q9967

== ENCOUNTER 2020-03-02 09:45 | Emergency (ER) | payer BC, SELFPAY ==
[2020-03-02] VITALS (12 sets, daily range): BP systolic 121–159; BP diastolic 70–105; PULSE 60–73; RESP 16–18; TEMP 36.7; O2SAT 96–98
--- NOTE | 2020-03-02 10:15 | DI.CT_ITS ---
EXAM: CT ABDOMEN PELVIS W CLINICAL HISTORY: Known ventral hernias, worse pain, elevated lactat TECHNIQUE: Imaging Protocol: Axial computed tomography images with coronal and sagittal reformatted images were created and reviewed CONTRAST MATERIAL: Intravenous: Omnipaque 350 Contrast volume:100 mL Oral: No COMPARISON: CT CT ABDOMEN PELVIS W from 02/21/2020 FINDINGS: ABDOMEN: Lung Bases: Normal where visualized. Liver: Normal density. Stable hepatic cysts. Portal, Superior Mesenteric, and Splenic Veins: Unremarkable. Gallbladder and Biliary Tract: No radiodense calculus or dilation. Pancreas: Normal density, no abnormal calcifications or inflammatory process. Fatty infiltration. Spleen: Normal. Adrenals: No masses seen. Kidneys: Normal size, contour and axis. No radiodense stones or obstructive uropathy. Stable left clayton al cyst. Abdominal Aorta: Abdominal portion non-dilated. Atherosclerosis. Bowel: No obstruction or bowel wall thickening. No evidence of acute appendicitis. Stable duodenal d iverticula. Hiatal hernia. Colonic diverticulosis without evidence of acute diverticulitis. Peritoneal Cavity: No ascites, collection or mesenteric inflammatory response. Lymph Nodes: Within normal limits. Bones: Degenerative changes. Soft Tissues: Stable anterior abdominal wall fat containing hernia. Stable small fat containing umbi lical hernia. PELVIS: Bladder: Symmetric distention, no gross wall thickening. Reproductive Organs: Enlarged prostate gland. Lymph Nodes: Within normal limits. Bones: Degenerative changes. IMPRESSION: No acute abdominal or pelvic process. RADIATION DOSE DELIVERED: Total DLP DATA REPOSITORY: All CT scans at this facility are submitted to the National Radiology Data Registry (NRDR) Dose Index Registry (DIR) with the [employer] ([employer]). RADIATION OPTIMIZATION: All CT scans at this facility use at least one of these dose optimization te chniques: automated exposure control; mA and/or kV adjustment per patient size (includes targeted exa ms where dose is matched to clinical indication); or iterative reconstruction.
[2020-03-02 10:19] LABS: Lactate 1.8 mmol/L (0.6-1.4)
[2020-03-02 10:21] LABS: Abs Immature Grans 0.04 k/cumm (0.0-0.09); Absolute Basophil Count 0.04 k/cumm (0.0-0.2); Absolute Eosinophil Count 0.22 k/cumm (0.0-0.7); Absolute Lymphocyte Count 1.74 k/cumm (1.2-3.4); Absolute Monocyte Count 0.81 k/cumm (0.11-0.7); Absolute Neutrophil Count 4.16 k/cumm (1.2-6.7); Basophils % 0.6; Eosinophils % 3.1; HCT 44.6 % (40.0-50.0); Immature Grans % 0.6 %; Lymphocytes % 24.8; Mean Corp. HGB Concentration 35.9 g/dL (32.0-36.0); Mean Corpuscular Hemoglobin 31.5 pg (27.0-33.0); Mean Corpuscular Volume 87.8 fL (80-95); Mean Platelet Volume 10.4 fL (8.0-11.0); Monocytes % 11.6; Neutrophils % 59.3; Platelet Count 215 x1000/uL (130-400); RBC 5.08 m/cumm (4.50-6.00); RBC Distribution Width 12.3 % (11.8-14.1); White Blood Cell Count 7.01 k/cumm (4.4-10.8)
[2020-03-02 10:25] LABS: Bilirubin Negative (Negative); Blood Negative (Negative); Clarity Clear (Clear); Glucose Negative (Negative); Ketones Negative (Negative); Leukocyte Esterase Negative (Negative); Nitrite Negative (Negative); Urobilinogen 0.2 EU/dL (Up TO 0.2); pH 5.5 (5-8)
[2020-03-02 10:39] LABS: ALT 26 U/L (16-63); AST 20 U/L (15-37); Albumin 4.3 g/dL (3.4-5.0); Alkaline Phosphatase 93 U/L (46-116); Anion Gap 9.9 mmol/L (3-11); BUN 16 mg/dL (7-18); Bilirubin, Total 0.7 mg/dL (0.2-1.0); CO2 27.1 mmol/L (21.0-32.0); CREATININE 1.18 mg/dL (0.70-1.30); Calcium 8.7 mg/dL (8.5-10.1); Chloride 103 mmol/L (98-107); Glucose 133 mg/dL (74-106); Lipase 237 U/L (73-393); Potassium 4.1 mmol/L (3.5-5.1); Sodium 140 mmol/L (136-145); Total Protein 7.5 g/dL (6.4-8.2)
[2020-03-02] MEDS: Omnipaque 350 MG/ML 100 ML BTL IJ (10:54)
[2020-03-02] MEDS: Normal Saline - Diluent 50 ML VIAL IV (10:54)
[2020-03-02] MEDS: Normal Saline 1,000 ML 1000 ML IV (11:08)
--- NOTE | 2020-03-02 12:14 | ED.GENADUL_ITS ---
Discharge Plan Disposition Patient Disposition: HOME Condition: Stable Discharge Details Chief Complaint: Abd Prob Clinical Impression: Abdominal pain Primary Care Provider: Zeynep Hughes ED Provider: Kong Dixon Home Meds and New Rx's Prescriptions: Continued hydrochlorothiazide 12.5 mg tablet 12.5 mg PO DAILY RF: 0 diazepam [Valium] 5 mg tablet 5 mg PO BID PRN (Reason: muscle spasm) Qty: 14 RF: 0 omeprazole 40 MG capsule,delayed release(DR/EC) 40 mg PO DAILY RF: 0 ondansetron [Zofran ODT] 4 MG tablet,disintegrating 1 tab PO PRN PRNRF: 0 ropinirole 0.25 MG tablet 0.25 mg PO HS RF: 0 bupropion HCl 300 MG tablet extended release 24 hr 300 mg PO DAILY RF: 0 acetaminophen 500 mg tablet 1,000 mg PO Q8H PRN (Reason: pain) Qty: 90 RF: 3 Discharge Instructions Instructions: Abdominal Pain (ED) Additional Instructions: At this time your laboratory values and CT do not reveal any obvious emergent process. As we discussed, a bowel rest over the next couple of days. I will have this note forwarded to your surgical team, I recommend following up on Tuesday with them as already scheduled. Please watch for new or worsening symptoms and return to the ER for any concerns Discharge Data Discharge Date/Time-TO BE ENTERED AT DEPARTURE: 03/02/20 12:54 Medical Decision Making <ORACIO Costa - Last Filed: 03/02/20 13:10> 59-year-old gentleman who is currently under surgical care as an outpatient presents to the ER for evaluation of worsening abdominal pain. He does have history of a Pastor procedure, hypertension, GERD, Wilson's esophagus. He denies fever, radiating pain, blood in his stools or black tarry stools. He appears well, nontoxic. Examination reveals diffusely mildly tender abdomen, slightly worse over the palpable ventral hernia that is able to be partially reduced. Abdomen at this time does not appear to be surgical. Will obtain routine laboratory values and reassess. Dr. Bro and I discussed the case, he personally evaluated the patient, please see his note Initial laboratory values reveal a white count of 7.01 hemoglobin 16, hematocrit 44.6 platelets 215. Electrolytes unremarkable. Creatinine 1.18 with a GFR greater than 60. Lactate of 1.8. Urinalysis unremarkable. Patient is receiving 1 L IV fluid. Given his slightly elevated lactate will obtain CT. CT of abdomen and pelvis with contrast read by radiology as no acute process. There appears to be stable small ventral hernias. Likely duodenal diverticulum, differential includes duodenal ulcer. Clinically he does not appear to have a duodenal ulcer. Discussed laboratory values and CT findings with patient. He appears well, nontoxic and in no acute distress. He is comfortable with discharge from the ER today, bowel rest, and will follow-up with his surgical team as already scheduled on Tuesday. Medical Records Medical records reviewed: Yes I reviewed the patient's medical records. Lab Data Lab results reviewed: Yes I reviewed the patient's lab results. Lab results narrative: Laboratory Tests Range/Units 03/02/20 03/02/20 03/02/20 10:05 10:05 10:05 WBC (4.4-10.8) k/cumm 7.01 RBC (4.50-6.00) m/cumm 5.08 Hgb (13.5-17.5) g/dL 16.0 Hct (40.0-50.0) % 44.6 MCV (80-95) fL 87.8 MCH (27.0-33.0) pg 31.5 MCHC (32.0-36.0) g/dL 35.9 RDW (11.8-14.1) % 12.3 Plt Count (130-400) x1000/uL 215 MPV (8.0-11.0) fL 10.4 Immature Gran % % 0.6 Neutrophils % 59.3 Lymphocytes % 24.8 Monocytes % 11.6 Eosinophils % 3.1 Basophils % 0.6 Absolute Neutrophils (1.2-6.7) k/cumm 4.16 Absolute Lymphocytes (1.2-3.4) k/cumm 1.74 Absolute Monocytes (0.11-0.7) k/cumm 0.81 H Absolute Eosinophils (0.0-0.7) k/cumm 0.22 Absolute Basophils (0.0-0.2) k/cumm 0.04 Sodium (136-145) mmol/L 140 Potassium (3.5-5.1) mmol/L 4.1 Chloride (98-107) mmol/L 103 Carbon Dioxide (21.0-32.0) mmol/L 27.1 Anion Gap (3-11) mmol/L 9.9 BUN (7-18) mg/dL 16 Creatinine (0.70-1.30) mg/dL 1.18 Estimated GFR/1.73 m2 (mL/min/1.73m2) >= 60.00 Glucose (74-106) mg/dL 133 H Lactate (0.6-1.4) mmol/L 1.8 H Calcium (8.5-10.1) mg/dL 8.7 Total Bilirubin (0.2-1.0) mg/dL 0.7 AST (15-37) U/L 20 ALT (16-63) U/L 26 Alkaline Phosphatase (46-116) U/L 93 Total Protein (6.4-8.2) g/dL 7.5 Albumin (3.4-5.0) g/dL 4.3 Lipase (73-393) U/L 237 Urine Color (Yellow) Urine Clarity (Clear) Urine pH (5-8) Ur Specific [place] (1.005-1.025) Urine Protein (Negative) mg/dL Urine Ketones (Negative) mg/dL Urine Blood (Negative) Urine Nitrite (Negative) Urine Bilirubin (Negative) Urine Urobilinogen (Up TO 0.2) EU/dL Ur Leukocyte Esterase (Negative) Urine Glucose (Negative) mg/dL Range/Units 03/02/20 10:18 WBC (4.4-10.8) k/cumm RBC (4.50-6.00) m/cumm Hgb (13.5-17.5) g/dL Hct (40.0-50.0) % MCV (80-95) fL MCH (27.0-33.0) pg MCHC (32.0-36.0) g/dL RDW (11.8-14.1) % Plt Count (130-400) x1000/uL MPV (8.0-11.0) fL Immature Gran % % Neutrophils % Lymphocytes % Monocytes % Eosinophils % Basophils % Absolute Neutrophils (1.2-6.7) k/cumm Absolute Lymphocytes (1.2-3.4) k/cumm Absolute Monocytes (0.11-0.7) k/cumm Absolute Eosinophils (0.0-0.7) k/cumm Absolute Basophils (0.0-0.2) k/cumm Sodium (136-145) mmol/L Potassium (3.5-5.1) mmol/L Chloride (98-107) mmol/L Carbon Dioxide (21.0-32.0) mmol/L Anion Gap (3-11) mmol/L BUN (7-18) mg/dL Creatinine (0.70-1.30) mg/dL Estimated GFR/1.73 m2 (mL/min/1.73m2) Glucose (74-106) mg/dL Lactate (0.6-1.4) mmol/L Calcium (8.5-10.1) mg/dL Total Bilirubin (0.2-1.0) mg/dL AST (15-37) U/L ALT (16-63) U/L Alkaline Phosphatase (46-116) U/L Total Protein (6.4-8.2) g/dL Albumin (3.4-5.0) g/dL Lipase (73-393) U/L Urine Color (Yellow) Yellow Urine Clarity (Clear) Clear Urine pH (5-8) 5.5 Ur Specific [place] (1.005-1.025) 1.020 Urine Protein (Negative) mg/dL Negative Urine Ketones (Negative) mg/dL Negative Urine Blood (Negative) Negative Urine Nitrite (Negative) Negative Urine Bilirubin (Negative) Negative Urine Urobilinogen (Up TO 0.2) EU/dL 0.2 Ur Leukocyte Esterase (Negative) Negative Urine Glucose (Negative) mg/dL Negative <Rc Bro MD - Last Filed: 03/10/20 17:16> Patient seen, examined, and discussed with ORACIO Dixon. Patient tender diffuse abdomen and worse in his epigastric area, soft and nondistended. CT of the abdomen pelvis to assess for acute surgical pathology was reviewed and interpreted by radiology who noted no acute intra-abdominal process. Mention was made of small stable ventral hernias. Duodenal diverticulum versus ulcer. I agree with treatment plan as discussed/documented. Patient to follow-up with general surgery as scheduled. HPI <ORACIO Costa - Last Filed: 03/02/20 13:10> General Mode of arrival: ambulatory . Date/Time Provider Initiated Documentation: 03/02/20 09:53 . Information obtained by: patient . 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 He reports that he has had similar abdominal pain for quite some time. He was recently seen by our surgical team, had an outpatient CT for further evaluation of his abdominal pain and hernias, and scheduled to be seen again on Tuesday for reevaluation and follow-up of his CT. He admits to nausea and a small amount of diarrhea over the past 24 hours. Denies any fever, recent travel, sick contact, bad food exposure. Denies any chest pain, shortness of breath, back pain, black tarry stools, bright red blood in stools, urinary symptoms. He reports that the pain is moderate in nature, constant, and he cannot do anything to make it worse or better. He denies decreased appetite Related Data Home Medications Medication Instructions Recorded Confirmed omeprazole 40 mg PO DAILY 05/19/14 03/07/20 ondansetron [Zofran ODT] 1 tab PO PRN PRN 06/15/15 03/07/20 bupropion HCl 300 mg PO DAILY 06/26/17 03/07/20 ropinirole 0.25 mg PO HS 06/26/17 03/07/20 hydrochlorothiazide 12.5 mg tablet 12.5 mg PO DAILY 01/31/19 03/07/20 acetaminophen 1,000 mg PO Q8H PRN #90 tab 06/28/19 03/07/20 diazepam 5 mg tablet 5 mg PO BID PRN #14 tab 08/13/19 03/07/20 Previous Rx's Medication Instructions Recorded acetaminophen 1,000 mg PO Q8H PRN #90 tab 06/28/19 diazepam 5 mg tablet 5 mg PO BID PRN #14 tab 08/13/19 Allergies Allergy/AdvReac Type Severity Reaction Status Date / Time egg Allergy Intermediate Nausea Unverified 03/07/20 13:55 ibuprofen AdvReac Severe Significant Verified 03/07/20 13:55 hx Barretts, bleeding ulcers, GERD General Stated Complaint: Abd Prob FROILAN: 3 Review of Systems <ORACIO Costa - Last Filed: 03/02/20 13:10> Constitutional Constitutional: Denies fatigue, Denies fever(s) and Denies weakness ENT Ears, Nose, Mouth, and Throat: Denies sore throat Cardiovascular Cardiovascular: Denies chest pain and Denies dyspnea Respiratory Respiratory: Denies cough and Denies dyspnea Gastrointestinal Gastrointestinal: Reports abdominal pain, Denies melena, Denies hematochezia, Denies constipation, Reports diarrhea, Reports nausea and Denies vomiting Genitourinary Genitourinary: Denies dysuria Musculoskeletal Musculoskeletal: Denies back pain, Denies numbness and Denies tingling Integumentary/Breasts Skin/Breast: Denies rash Neurologic Neurologic: Denies numbness, Denies tingling and Denies weakness Endocrine Endocrine: Denies fatigue Hematologic/Lymphatic Hematologic/Lymphatic: Denies easy bleeding and Denies easy bruising PFSH <ORACIO Costa - Last Filed: 03/02/20 13:10> Medical History Wilson esophagus (Acute) Depression (Chronic) GERD (gastroesophageal reflux disease) (Chronic) History of asthma (Acute) Environmental Hypertension (Chronic) BRAULIO on CPAP (Chronic) Osteoarthritis (Chronic) Surgical History History of appendectomy (Chronic) History of colonoscopy (Chronic) History of esophagogastroduodenoscopy (EGD) (Chronic) History of Pastor fundoplication (Chronic) History of tonsillectomy (Chronic) History of total left knee replacement (TKR) (Acute 07/27/17) Dr. Her Status post total right knee replacement (Acute 06/27/19) Dr. Bello Social History Smoking/Tobacco Use Status: Former Tobacco Use Alcohol Intake: current Alcohol Intake frequency: a few times a week Drug use: Never Substance use type: does not use Current gender identity: male Do you feel safe in your relationship?: Yes Exam <ORACIO Costa - Last Filed: 03/02/20 13:10> Const General: cooperative, healthy appearing, comfortable and no acute distress Orientation: alert, awake and oriented x3 HENMT Head: normal to inspection, normocephalic and atraumatic Mouth: moist mucous membranes Eyes Conjunctivae: conjunctivae normal Sclera: sclerae normal Neck Neck: normal visual inspection, full ROM, trachea midline and supple Resp Effort & Inspection: normal respiratory effort and able to speak in complete sentences Auscultation: clear to auscultation bilaterally Cardio Rate: regular rate Rhythm: regular rhythm GI Inspection: incision (Prior surgical incision scar) and obesity Palpation: soft, not firm, no guarding, hernia (Partially reducible) ventral, no pulsatile masses, not rigid and tender (At the site of the ventral hernia along surgical incision) other (Diffusely, worse over the epigastric region) Auscultation: normal bowel sounds Back/Spine/Pelvis Back: No back tenderness Skin General skin exam: no rashes or lesions noted Neuro General: patient alert, patient awake, moves all extremities and no focal motor deficits Speech: speech normal Gait: normal gait Sensory Exam: no sensory deficits noted Psych Appearance: grossly normal Mental Status: mental status grossly normal Course <ORACIO Costa - Last Filed: 03/02/20 13:10> Vital Signs Vital signs: Vital Signs Pulse 73 03/02/20 09:52 Blood Pressure 159/104 H 03/02/20 09:52 Temperature 36.7 C 03/02/20 09:53 Temperature Source Skin 03/02/20 09:53 Pulse 61 03/02/20 12:01 Respiratory Rate 18 03/02/20 09:53 Respiratory Effort Non-Labored 03/02/20 09:53 Blood Pressure 121/89 03/02/20 12:01 Blood Pressure Mean 95 03/02/20 12:01 Blood Pressure Position Sitting 03/02/20 09:53 Pulse Oximetry 97 03/02/20 12:00 Oxygen Delivery Method Room Air 03/02/20 09:53 Oxygen Flow Rate 0 03/02/20 09:53 Pain Level 9 03/02/20 09:53 Lab/Test Results Lab/Test Results: Laboratory Tests Range/Units 03/02/20 03/02/20 03/02/20 10:05 10:05 10:05 WBC (4.4-10.8) k/cumm 7.01 RBC (4.50-6.00) m/cumm 5.08 Hgb (13.5-17.5) g/dL 16.0 Hct (40.0-50.0) % 44.6 MCV (80-95) fL 87.8 MCH (27.0-33.0) pg 31.5 MCHC (32.0-36.0) g/dL 35.9 RDW (11.8-14.1) % 12.3 Plt Count (130-400) x1000/uL 215 MPV (8.0-11.0) fL 10.4 Immature Gran % % 0.6 Neutrophils % 59.3 Lymphocytes % 24.8 Monocytes % 11.6 Eosinophils % 3.1 Basophils % 0.6 Absolute Neutrophils (1.2-6.7) k/cumm 4.16 Absolute Lymphocytes (1.2-3.4) k/cumm 1.74 Absolute Monocytes (0.11-0.7) k/cumm 0.81 H Absolute Eosinophils (0.0-0.7) k/cumm 0.22 Absolute Basophils (0.0-0.2) k/cumm 0.04 Sodium (136-145) mmol/L 140 Potassium (3.5-5.1) mmol/L 4.1 Chloride (98-107) mmol/L 103 Carbon Dioxide (21.0-32.0) mmol/L 27.1 Anion Gap (3-11) mmol/L 9.9 BUN (7-18) mg/dL 16 Creatinine (0.70-1.30) mg/dL 1.18 Estimated GFR/1.73 m2 (mL/min/1.73m2) >= 60.00 Glucose (74-106) mg/dL 133 H Lactate (0.6-1.4) mmol/L 1.8 H Calcium (8.5-10.1) mg/dL 8.7 Total Bilirubin (0.2-1.0) mg/dL 0.7 AST (15-37) U/L 20 ALT (16-63) U/L 26 Alkaline Phosphatase (46-116) U/L 93 Total Protein (6.4-8.2) g/dL 7.5 Albumin (3.4-5.0) g/dL 4.3 Lipase (73-393) U/L 237 Urine Color (Yellow) Urine Clarity (Clear) Urine pH (5-8) Ur Specific [place] (1.005-1.025) Urine Protein (Negative) mg/dL Urine Ketones (Negative) mg/dL Urine Blood (Negative) Urine Nitrite (Negative) Urine Bilirubin (Negative) Urine Urobilinogen (Up TO 0.2) EU/dL Ur Leukocyte Esterase (Negative) Urine Glucose (Negative) mg/dL Range/Units 03/02/20 10:18 WBC (4.4-10.8) k/cumm RBC (4.50-6.00) m/cumm Hgb (13.5-17.5) g/dL Hct (40.0-50.0) % MCV (80-95) fL MCH (27.0-33.0) pg MCHC (32.0-36.0) g/dL RDW (11.8-14.1) % Plt Count (130-400) x1000/uL MPV (8.0-11.0) fL Immature Gran % % Neutrophils % Lymphocytes % Monocytes % Eosinophils % Basophils % Absolute Neutrophils (1.2-6.7) k/cumm Absolute Lymphocytes (1.2-3.4) k/cumm Absolute Monocytes (0.11-0.7) k/cumm Absolute Eosinophils (0.0-0.7) k/cumm Absolute Basophils (0.0-0.2) k/cumm Sodium (136-145) mmol/L Potassium (3.5-5.1) mmol/L Chloride (98-107) mmol/L Carbon Dioxide (21.0-32.0) mmol/L Anion Gap (3-11) mmol/L BUN (7-18) mg/dL Creatinine (0.70-1.30) mg/dL Estimated GFR/1.73 m2 (mL/min/1.73m2) Glucose (74-106) mg/dL Lactate (0.6-1.4) mmol/L Calcium (8.5-10.1) mg/dL Total Bilirubin (0.2-1.0) mg/dL AST (15-37) U/L ALT (16-63) U/L Alkaline Phosphatase (46-116) U/L Total Protein (6.4-8.2) g/dL Albumin (3.4-5.0) g/dL Lipase (73-393) U/L Urine Color (Yellow) Yellow Urine Clarity (Clear) Clear Urine pH (5-8) 5.5 Ur Specific [place] (1.005-1.025) 1.020 Urine Protein (Negative) mg/dL Negative Urine Ketones (Negative) mg/dL Negative Urine Blood (Negative) Negative Urine Nitrite (Negative) Negative Urine Bilirubin (Negative) Negative Urine Urobilinogen (Up TO 0.2) EU/dL 0.2 Ur Leukocyte Esterase (Negative) Negative Urine Glucose (Negative) mg/dL Negative
--- NOTE | 2020-03-02 12:25 | DI.VRAD_ITS ---
PROCEDURE INFORMATION: Exam: CT Abdomen And Pelvis With Contrast Exam date and time: 03/02/2020 10:28 AM Age: 59 years old Clinical indication: Abdominal pain; Other: Known hernia, worsening pain TECHNIQUE: Imaging protocol: Computed tomography of the abdomen and pelvis with intravenous contrast. Radiation optimization: All CT scans at this facility use at least one of these dose optimization techniques: automated exposure control; mA and/or kV adjustment per patient size (includes targeted exams where dose is matched to clinical indication); or iterative reconstruction. Contrast material: OMNIPAQUE 350; Contrast volume: 100 ml; Contrast route: INTRAVENOUS (IV); COMPARISON: CT ABDOMEN PELVIS W 02/21/2020 10:04 AM FINDINGS: Mediastinal space: Stable hiatal hernia Liver: 15 mm cyst in the right lobe of the liver. 12 mm cyst inferior right lobe of the liver 10 mm cyst medial liver Gallbladder and bile ducts: Normal. No calcified stones. No ductal dilation. Pancreas: Normal. No ductal dilation. Spleen: Normal. No splenomegaly. Adrenals: Normal. No mass. Kidneys and ureters: 18 mm cyst in the upper pole of the left kidney. Stomach and bowel: Again noted diverticulosis of the rectosigmoid. No richie diverticulitis Stable 2.5 cm collection of air and debris projecting off the 3rd duodenum most consistent with duodenal diverticulum. Differential includes duodenal ulcer. Appendix: No evidence of appendicitis. Intraperitoneal space: Unremarkable. No free air. No significant fluid collection. Vasculature: Unremarkable. No abdominal aortic aneurysm. Lymph nodes: Unremarkable. No enlarged lymph nodes. Bladder: Unremarkable as visualized. Reproductive: The prostate is enlarged, greater than 5 cm. Recommend urology consult Bones/joints: Unremarkable. No acute fracture. Soft tissues: Stable small ventral hernias IMPRESSION: No acute process. No significant change Dictated and Authenticated by: Jas Jensen MD. Ordering:ELIUD Triana MD
== END 2020-03-02 12:54 | disposition home or self-care (01) ==
PROVIDERS: Emergency Provider Physician Assistant; PCP Nurse Practitioner
DX: K43.9 Ventral hernia without obstruction or gangrene (principal); R11.0 Nausea; I10 Essential (primary) hypertension
CPT/HCPCS: 36415; 80053; 83690; 96360; 99285; 74177; 81003; 83605; 85025; 99284; J3490

== ENCOUNTER 2020-03-15 07:26 | Outpatient (CLI) | payer BC, SELFPAY ==
[2020-03-16 17:29] LABS: COVID-19 RT-PCR Result NEGATIVE (Negative)
== END 2020-03-15 07:46 ==
PROVIDERS: PCP Nurse Practitioner; Visit Provider Surgery
DX: Z01.818 Encounter for other preprocedural examination (principal)
CPT/HCPCS: U0003

== ENCOUNTER 2020-03-19 10:29 | Day surgery (SDC) | payer BC, SELFPAY ==
[2020-03-19] VITALS (10 sets, daily range): BP systolic 96–140; BP diastolic 49–88; PULSE 63–78; RESP 12–18; TEMP 36.3–36.5; O2SAT 95–98
--- NOTE | 2020-03-19 06:47 | W.PM.OP ---
Date of service: 03/19/20 Time of Service: 13:41 Operative Note Operative Note DATE OF PROCEDURE: 03/19/20 PRE-OP DIAGNOSIS: Incisonal hernias POST-OP DIAGNOSIS: same PROCEDURE: Laparoscopic incisional hernia repair SURGEON: Judith Rubio ATHLETIC TEAM PHYSICIAN: Jacqui Limon ANESTHESIA: GETA (Sandra Naik CRNA) and regional ESTIMATED BLOOD LOSS: 15 PATHOLOGY: none sent COMPLICATIONS: None Patient was transported to: PACU Patient's condition: stable Implants: Ventralex ST Mesh with PS Echo PS positioning system 8 x 10 inches REF [id number] EXP 2021-10-12 Indications: Shane is here today to discuss laparoscopic repair of his 3 small ventral hernias Laparoscopic ventral hernia repair with mesh Risks, benefits and complications have been reviewed. Complications include but are not limited to bleeding, pain, infection, injury to underlying structures like bowel and adverse reaction to the medication. Questions were entertained and answered to their satisfaction and they wished to proceed. No guarantees were given or implied. Procedure Description: After informed consent was obtained the patient was taken to the operating room placed in the supine position, SCDs were applied, as well as monitors. A timeout was done. The patient was then placed under general anesthesia and intubated without any difficulty. Next a Zamudio catheter was placed in a standard surgical fashion. At this point the abdomen was prepped and draped in a sterile surgical fashion with chlorhexidine. A second timeout was done and the patient's name, date of , operation to be performed, DVT prophylaxis, antibiotic given were reviewed. Fire risk was assessed. Exparel mixed 50/50 with 0.25% Bupivocaine was injected into the dermis in the Right upper quadrant. A small 5 mm incision was made with an 11 blade. The skin was grasped with penetrating towel clamps on either side of the incision and then using a Visiport a 5 mm port was placed under direct visualization into the abdomen. The abdomen was insufflated and adhesions of omentum up to the abdominal wall along the midline incision were identified. Local anesthetic was then injected in the Left Upper Quadrant. A small 5 mm incision was made with an 11 blade and another 5 mm port was placed under direct visualization into the abdomen. Using a laparoscopic Ligasure the omentum and transverse colon were gently taken down. The bowel was inspected and there were no injuries noted. The local anesthetic was then injected in the right lower quadrant area and a 11 mm incision was made with an 11 blade. A 11 mm port was then placed under direct visualization. Local was then injected in the LUQ and a 5 mm incision was made with an 11 blade and another 5 mm port was placed under direct visualization. The rest of the adhesions were taken down. Omentum was removed from the hernia defect. Three defects were identified along his old midline scar. The omentum was then inspected and no active bleeding was noted. A 8 x 10 inch ECHO PS NAHOMI mesh was placed into the abdomen through the 11 port site. A small puncture was made in the midle of the old midline incision and using a Paul Denis the blue insuflation piece of the mesh was pulled up. The balloon along the mesh was inflated. The mesh was pulled up and secured by placing a hemostat on the insuflation catheter. Using a 5 mm Tacker, the mesh was tacked up to the abdominal wall circumferentially. Once in good position the mesh balloon was deflated and removed through the 11 port site. The omentum was inspected one more time and no bleeding was noted. The transverse colon was inspected and no injuries were noted. Good coverage of the entire midline incision was noted with this mesh. The 11 mm port was removed and the Paul Denys was inserted and the fascia was closed with 0 vicryl. Two of the 5 mm port were removed under direct visualization and there was no bleeding from the fascia. The last 5 mm port was removed. The skin was then closed with 4-0 Vicryl. The skin was cleaned and dried and skin affix was applied. The patient was woken up, extubated and taken back to recovery room in stable condition. There were no immediate complications. Sponge instrument needle counts were correct at the end of the case x2.
--- NOTE | 2020-03-19 06:49 | PDOC.DSDIS_ITS ---
Discharge Plan Disposition Patient Disposition: HOME Condition: Good Discharge Details Reason For Visit: incisional hernia repair Attending Provider: Judith Rubio Primary Care Provider: Zeynep Hughes Home Meds and New Rx's Prescriptions: New oxycodone 5 mg tablet 5 mg PO Q6H PRNQty: 14 RF: 0 Continued hydrochlorothiazide 12.5 mg tablet 12.5 mg PO DAILY RF: 0 diazepam [Valium] 5 mg tablet 5 mg PO BID PRN (Reason: muscle spasm) Qty: 14 RF: 0 omeprazole 40 MG capsule,delayed release(DR/EC) 40 mg PO DAILY RF: 0 ondansetron [Zofran ODT] 4 MG tablet,disintegrating 1 tab PO PRN PRNRF: 0 ropinirole 0.25 MG tablet 0.25 mg PO HS RF: 0 bupropion HCl 300 MG tablet extended release 24 hr 300 mg PO DAILY RF: 0 acetaminophen 500 mg tablet 1,000 mg PO Q8H PRN (Reason: pain) Qty: 90 RF: 3 Discharge Instructions Instructions: Laparoscopic Herniorrhaphy (DC) Additional Instructions: Activity at Home after surgery: 1. Make sure you walk outside at least 4 times per day 2. You should be able to climb a flight of stairs 3. No driving while in pain or taking pain medications 4. No strenuous activity or heavy lifting for 2 weeks (laparoscopic surgery) Diet, Nutrition, & wound healin. Avoid alcohol until after you are recovered from your surgery 2. Make sure to eat plenty of lean protein (meat, fish, eggs, cottage cheese, beans) 3. Eat a variety of fruits and vegetables. Eat plenty of high fiber foods to avoid constipation. 4. Drink plenty of liquids to stay hydrated and avoid constipation Pain Medications: 1. Alternate Tylenol 1000 mg and Ibuprofen 600 mg every 3 hours 2. If a narcotic has been prescribed take as directed only for breakthrough pain For Constipation: 1. Take Milk of Magnesia or MiraLax as needed for constipation Other: 1. You may shower daily. Do not scrub the incisions 2. Do not soak the incisions for 1 week 3. You may alternate ice and heat as needed for pain and swelling Wound Care: 1. Keep the incisions clean and dry Other Services that may have been ordered: 0 Home Health- to help with dressing changes 0 Outpatient physical therapy Please call our office if you develop: 1. Fevers >101.5 2. Nausea or Vomiting 3. Worsening pain 4. Redness and thick discharge from the wounds If after hours please call the Hospital at and ask to speak to the on-call surgeon Referrals: Judith Rubio MD [ [facility] STAFF PHYSICIAN] - 04/01/20 11:00 am Activity:: no lifting .20 lb x 2 weeks Remove Dressings/Wound Care:: 24 hours Shower/Bathe:: 24 hours Diet:: As Tolerated Discharge Orders Discharge Orders: Discharge Order (Routine); Ordered 03/19/20 Ordered By: Judith Rubio
[2020-03-19] MEDS: Lactated Ringers 1,000 ML 80 ML IV ×2 (11:07→14:42)
[2020-03-19] MEDS: ceFAZolin 2 GM/50 ML BAG IVPB (13:23)
[2020-03-19] MEDS: Bupivacaine 0.25% Pres-Free 30 ML VIAL (13:49)
[2020-03-19] MEDS: fentaNYL 100 MCG/2 ML VIAL IVP ×2 (15:40→15:55)
[2020-03-19] MEDS: HYDROmorphone 2 MG/ML VIAL IVP (16:00)
== END 2020-03-19 17:37 | disposition home or self-care (01) ==
PROVIDERS: PCP Nurse Practitioner; Visit Provider Surgery
PROC: 0WQF4ZZ Repair Abdominal Wall, Percutaneous Endoscopic Approach (ICD-10-PCS; CPT 49654; principal; 2020-03-19 11:45)
DX: K43.2 Incisional hernia without obstruction or gangrene (principal); G89.18 Other acute postprocedural pain
CPT/HCPCS: 49654; C1781; J0690; J1885; J2405; J3010

== ENCOUNTER 2021-02-12 08:59 | Outpatient (REF) | payer BC, SELFPAY ==
[2021-02-12 19:36] LABS: ALT 35 U/L (16-63); AST 18 U/L (15-37); Albumin 4.2 g/dL (3.4-5.0); Alkaline Phosphatase 128 U/L (46-116); Anion Gap 13.6 mmol/L (3-11); BUN 21 mg/dL (7-18); Bilirubin, Total 0.4 mg/dL (0.2-1.0); CO2 23.4 mmol/L (21.0-32.0); CREATININE 1.3 mg/dL (0.70-1.30); Calcium 8.7 mg/dL (8.5-10.1); Chloride 104 mmol/L (98-107); Cholesterol 224 mg/dL (<200); Estimated GFR 55.94 (mL/min/1.73m2); Glucose 141 mg/dL (74-106); HDL Cholesterol 37 mg/dL (40-60); Potassium 4.3 mmol/L (3.5-5.1); Sodium 141 mmol/L (136-145); Total Protein 7.2 g/dL (6.4-8.2); Triglyceride 464 mg/dL (<150)
[2021-02-12 19:54] LABS: LDL CHOLESTEROL 131 mg/dL (<100)
== END 2021-02-12 09:00 | disposition home or self-care (01) ==
LOC: NCHCN 08:59
PROVIDERS: PCP Nurse Practitioner; Visit Provider Nurse Practitioner
DX: F32.9 Major depressive disorder, single episode, unspecified (principal); R73.03 Prediabetes; I10 Essential (primary) hypertension
CPT/HCPCS: 80053; 80061; 83721; 83036

== ENCOUNTER 2022-12-01 13:58 | Outpatient (REF) | payer BC, SELFPAY ==
[2022-12-01 17:11] LABS: ALT 39 U/L (16-63); AST 22 U/L (15-37); Albumin 4.3 g/dL (3.4-5.0); Alkaline Phosphatase 103 U/L (46-116); Anion Gap 9.1 mmol/L (3-11); BUN 17 mg/dL (7-18); Bilirubin, Total 0.5 mg/dL (0.2-1.0); CO2 24.9 mmol/L (21.0-32.0); CREATININE 1.2 mg/dL (0.70-1.30); Calcium 9.1 mg/dL (8.5-10.1); Calculated LDL 60 mg/dL (<100); Chloride 104 mmol/L (98-107); Cholesterol 126 mg/dL (<200); Estimated GFR 67.95 (mL/min/1.73m2); Glucose 102 mg/dL (74-106); HDL Cholesterol 31 mg/dL (40-60); Potassium 4.3 mmol/L (3.5-5.1); Sodium 138 mmol/L (136-145); Total Protein 7.7 g/dL (6.4-8.2); Triglyceride 176 mg/dL (<150)
[2022-12-01 17:19] LABS: Amylase 53 U/L (25-115); Lipase 64 U/L (16-77)
[2022-12-02 21:11] LABS: PSA, Screening 0.7 ng/mL (<=4.5)
== END 2022-12-01 13:59 | disposition home or self-care (01) ==
LOC: NCHCN 13:58
PROVIDERS: PCP Nurse Practitioner; Visit Provider Physician Assistant Medical
DX: R10.9 Unspecified abdominal pain (principal); K44.9 Diaphragmatic hernia without obstruction or gangrene; Z00.00 Encounter for general adult medical examination without abnormal findings; N40.0 Benign prostatic hyperplasia without lower urinary tract symptoms; Z12.5 Encounter for screening for malignant neoplasm of prostate; R73.03 Prediabetes; E78.5 Hyperlipidemia, unspecified
CPT/HCPCS: 80053; 80061; 83690; 84153; 82150; 83036

== ENCOUNTER → 2023-11-16 09:59 | Outpatient (BNVA) | payer MEDICARE, SELFPAY | PROVIDERS: PCP Physician Assistant Medical; Referring Provider Physician Assistant Medical; Visit Provider Surgery | DX: K43.9 Ventral hernia without obstruction or gangrene (principal) | CPT/HCPCS: 99203 ==

== ENCOUNTER → 2023-11-28 03:49 | Outpatient (CLI) | payer MEDICARE, SELFPAY ==
--- NOTE | 2023-11-28 06:45 | DI.CT_ITS ---
Exam(s) CT ABDOMEN PELVIS W EXAM: CT ABDOMEN PELVIS W CLINICAL HISTORY: Surgical planning for ventral hernia,K43.9 TECHNIQUE: Imaging Protocol: Axial computed tomography images with coronal and sagittal reformatted images were created and reviewed. CONTRAST MATERIAL: Intravenous: Omnipaque 350 Contrast volume:100 mL Oral: Yes COMPARISON: CT CT ABDOMEN PELVIS W from 02/21/[address] ABDOMEN PELVIS W from 03/02/2020 FINDINGS: ABDOMEN: Lung Bases: There is a small paraesophageal hernia. Liver: Normal density. There are simple hepatic cysts. No follow-up is recommended. Portal, Superior Mesenteric, and Splenic Veins: Unremarkable. Gallbladder and Biliary Tract: No radiodense calculus or dilation. Pancreas: Normal density, no abnormal calcifications or inflammatory process. Spleen: Normal. Adrenals: No masses seen. Kidneys: Normal size, contour and axis. No radiodense stones or obstructive uropathy. There is a simp le cyst in the superior pole of the left kidney. No follow-up is recommended. There are tiny hypode nsities in the right kidney which are too small for further characterization but statistically likely reflect small cysts. Abdominal Aorta: Abdominal portion non-dilated. Atherosclerotic calcification is present. Bowel: There is diverticulosis of the colon but no evidence of acute diverticulitis. No evidence of bowel obstruction or bowel wall thickening. There is a diverticulum associated with the 3rd portion of the duodenum. No evidence of appendicitis. There are surgical clips seen in the region of the ap pendix suggesting prior appendectomy. Peritoneal Cavity: No ascites, collection or mesenteric inflammatory response. No free air. Lymph Nodes: Within normal limits. Bones: Within normal limits for the patient's age. Soft Tissues: There is a small defect in the anterior abdominal wall in the midline (series 4, image 455). There is a small amount of fat protruding through the defect. PELVIS: Bladder: Symmetric distention, no gross wall thickening. Reproductive Organs: Enlarged prostate gland. Lymph Nodes: Within normal limits. Bones: Within normal limits for the patient's age. IMPRESSION: 1. Small fat containing anterior midline abdominal wall hernia. (Series 5, image 455). 2. Incidental findings in the abdomen and pelvis as described above. 3. No acute abdominal or pelvic process. RADIATION DOSE DELIVERED: 978.47mGy.cm Total DLP DATA REPOSITORY: All CT scans at this facility are submitted to the National Radiology Data Registry (NRDR) Dose Index Registry (DIR) with the [employer] (A[employer]). RADIATION OPTIMIZATION: All CT scans at this facility use at least one of these dose optimization te chniques: automated exposure control; mA and/or kV adjustment per patient size (includes targeted exa ms where dose is matched to clinical indication); or iterative reconstruction.
[2023-11-28] MEDS: Barium Sulfate 2% W/V-Creamy Vanilla Smoothie 450 ML BTL PO (07:31)
[2023-11-28] MEDS: Barium Sulfate 2% W/V-Berry Smoothie 450 ML BTL PO (07:31)
[2023-11-28 07:38] LABS: CREATININE 1.2 mg/dL (0.70-1.30); Estimated GFR 67.53 (mL/min/1.73m2)
[2023-11-28] MEDS: Omnipaque 350 MG/ML 100 ML BTL IJ (09:08)
[2023-11-28] MEDS: Normal Saline - Diluent 50 ML VIAL IJ (09:08)
== END ==
PROVIDERS: PCP Physician Assistant Medical; Visit Provider Surgery
DX: K43.9 Ventral hernia without obstruction or gangrene (principal)
CPT/HCPCS: 74177; 82565; J3490

== ENCOUNTER 2023-12-30 02:44 | Outpatient (CLI) | payer MEDICARE, SELFPAY ==
[2024-01-02 10:58] LABS: PSA, Screening 0.8 ng/mL (<=4.5)
== END 2023-12-30 02:45 | disposition home or self-care (01) ==
PROVIDERS: PCP Physician Assistant Medical; Visit Provider Physician Assistant Medical
DX: N40.0 Benign prostatic hyperplasia without lower urinary tract symptoms (principal); Z12.5 Encounter for screening for malignant neoplasm of prostate
CPT/HCPCS: 36415; 84153

== ENCOUNTER → 2024-01-10 08:11 | Outpatient (BNVA) | payer MEDICARE, SELFPAY | PROVIDERS: PCP Physician Assistant Medical; Referring Provider Physician Assistant Medical; Visit Provider Surgery | DX: Z01.818 Encounter for other preprocedural examination (principal); D17.22 Benign lipomatous neoplasm of skin and subcutaneous tissue of left arm; R19.02 Left upper quadrant abdominal swelling, mass and lump | CPT/HCPCS: 99214 ==

== ENCOUNTER 2024-01-25 11:25 | Day surgery (SDC) | payer MEDICARE, SELFPAY ==
[2024-01-25 11:45] VITALS: BP 141/85; PULSE 71; RESP 16; TEMP 36.3; O2SAT 98
[2024-01-25] MEDS: Lactated Ringers 1,000 ML 80 ML IV (11:55)
[2024-01-25] MEDS: Acetaminophen 500 MG TAB 1000 MG PO (11:58)
[2024-01-25] MEDS: Gabapentin 300 MG CAP 600 MG PO (11:59)
--- NOTE | 2024-01-25 14:24 | W.ANESPRE ---
General Info Date of Service Date Performed: 01/25/24 Height: 5 ft 9 in Weight: 86.183 kg Body Mass Index (BMI): 28.0 Surgical Procedure: Operation Date: 01/25/24 14:10 Proposed Procedure Side Surgeon p Excision and Closure Lipoma Abdominal Wall and LT Arm Braxton Peterson MD Meds Allergies and Home Medications Allergies Allergy/AdvReac Type Severity Reaction Status Date / Time ibuprofen AdvReac Severe Significant Verified 01/25/24 11:44 hx Barretts, bleeding ulcers, GERD Home Medication Medication Instructions Recorded ondansetron 4 mg disintegrating 1 tab PO PRN PRN 06/15/15 tablet (Zofran ODT) bupropion HCl 300 mg 24 hr tablet, 300 mg PO DAILY 06/26/17 extended release hydrochlorothiazide 12.5 mg tablet 12.5 mg PO DAILY 01/31/19 acetaminophen 500 mg tablet 1,000 mg (2 x 500 mg) PO Q8H PRN 06/28/19 pain #90 tabs atorvastatin 20 mg tablet (Lipitor) 20 mg PO DAILY 01/03/23 omeprazole 40 mg capsule,delayed 40 mg PO DAILY 01/03/23 release Current Visit Medications: Current Medications Generic Name Dose Route Start Last Admin Trade Name Freq PRN Reason Stop Dose Admin Acetaminophen 1,000 mg 01/25/24 06:00 01/25/24 11:58 Acetaminophen 500 Mg Tab PO 01/25/24 23:59 1,000 mg PREOP LILLI Administration Gabapentin 600 mg 01/25/24 06:00 01/25/24 11:59 Gabapentin 300 Mg Cap PO 01/25/24 23:59 600 mg PREOP LILLI Administration Ringer's Solution 1,000 mls @ 80 mls/hr 01/25/24 06:00 01/25/24 11:55 IV 01/25/24 23:59 80 mls/hr INFUSION LILLI Administration IV Miscellaneous Supplies 1 each 01/25/24 06:00 Iv Access IV 01/25/24 23:59 DIRECTED LILLI Sodium Chloride 0 ml 01/25/24 06:00 Normal Saline Flush 10 Ml Syr IV 01/25/24 23:59 PRN PRN Sodium Chloride 0 ml 01/25/24 06:00 Normal Saline 10 Ml Vial IJ 01/25/24 23:59 DIRECTED PRN Sterile Water 0 ml 01/25/24 06:00 Water,Injection,Sterile 10 Ml Vial IJ 01/25/24 23:59 DIRECTED PRN PFSH Active Problems Active Problems: Problem Status Onset Code Plantar fasciitis of right foot M72.2 GERD (gastroesophageal reflux disease) K21.9 BRAULIO on CPAP G47.33, Z99.89 Hypertension I10 Lung nodule R91.1 Prediabetes R73.03 BPH (benign prostatic hyperplasia) N40.0 Hyperlipidemia E78.5 Hearing impairment H91.90 Ventral hernia K43.9 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 Her bilateral History of tonsillectomy History of Pastor fundoplication History of appendectomy History of colonoscopy hx of adenomatous colonic polyp History of esophagogastroduodenoscopy (EGD) Tobacco Smoking/Tobacco Use Status: Former Tobacco Use Alcohol Alcohol Intake: former Substance Use Substance use: Never Substance use type: does not use Vital Signs and Lab Results Vital Signs Most Recent Vital Signs in EMR: Most Recent Vital Signs Temp Pulse Resp BP Pulse Ox 36.3 C L 71 16 141/85 H 98 01/25/24 11:45 01/25/24 11:45 01/25/24 11:45 01/25/24 11:45 01/25/24 11:45 Lab Results Blood Type / Crossmatch: No Data to Display Complete Blood Count: No Data to Display Complete Metabolic Panel: No Data to Display Liver Function Panel: No Data to Display Coagulation Panel: No Data to Display Cardiac Panel: No Data to Display Arterial Blood Gas: No Data to Display Venous Blood Gas: No Data to Display Pancreas Panel: No Data to Display Thyroid Panel: No Data to Display Infectious Disease: No Data to Display Blood Cultures: No Data to Display Toxicology Panel: No Data to Display Anesthesia Assessment and Plan Anesthesia History Personal History: No History of Anesthesia Complications Family History: No Family History of Anesthesia Complications Exercise Tolerance Exercise Tolerance: Metabolic Equivalents>4 Pertinent Negatives Pertinent Negatives: No Symptoms of GERD Cardiac & Pulmonary Exam Cardiac Exam: Normal S1/S2 Heart Sounds Pulmonary Exam: Clear Bilateral Breath Sounds Implantable Cardiac Device Does patient have a Pacemaker or an ICD?: No Airway Exam Known Difficult Airway: No Mallampati Class: 1 Mouth Opening: Normal (> 3cm) Thyromental Distance: Greater than 3 cm Neck Range of Motion: Full ROM Neck Circumference: Normal Teeth Condition: Normal Dentition ASA Classification ASA Score: ASA 2 Emergency Case?: No NPO Status NPO Status: NPO Clears >2 hours, Solids >8 hours Anesthesia Plan Resuscitation Status: Full Code Anesthesia Technique: General Anesthesia Airway Planned: Natural Airway Monitors Used: Standard Monitors
[2024-01-25 14:25] VITALS: BMI 28.0
[2024-01-25] MEDS: Bupivacaine 0.25% Pres-Free W/EPI 30 ML VIAL (15:51)
--- NOTE | 2024-01-25 15:57 | SOFT_PTH ---
PATIENT: Shane Fernandez LOC: [facility] U#:[id number] AGE/SX: 63/M ROOM: RE01/25/[address]: Braxton Peterson MD : [id number] BED: DIS: 01/25/2024 SPEC #: [id number] RECD: 01/25/24 17:42 STATUS: [facility] #: [id number] MARY: 01/25/24 15:[address]: Braxton Peterson DEPT: Surgical Specimen RECD BY: Michelle Mora ENTERED: 01/25/24 17:46 SP TYPE: SOFT OTHR DR: Yi Hercules Tissues: 1 - SOFT TISSUE MISC (INC. LIPOMA) 2 - SOFT TISSUE MISC (INC. LIPOMA) 3 - SOFT TISSUE MISC (INC. LIPOMA) Procedures: GROSS AND MICRO LEVEL 3 Comments: [id number]
[2024-01-25 16:18] VITALS: BP 121/76; PULSE 81; RESP 16; TEMP 36.2; O2SAT 94
--- NOTE | 2024-01-25 16:23 | W.PM.DSUDISC ---
Date of service: 01/25/24 Time of Service: 16:23 Discharge Plan Disposition Patient Disposition: Home Discharge Details Reason For Visit: Excision and primary closure of lipomas Attending Provider: Braxton Peterson Primary Care Provider: Yi Hercules Home Meds and New Rx's Prescriptions: Continued hydrochlorothiazide 12.5 mg tablet 12.5 mg PO DAILY atorvastatin [Lipitor] 20 mg tablet 20 mg PO DAILY omeprazole 40 mg capsule,delayed release(DR/EC) 40 mg PO DAILY ondansetron [Zofran ODT] 4 MG tablet,disintegrating 1 tab PO PRN PRN bupropion HCl 300 MG tablet extended release 24 hr 300 mg PO DAILY acetaminophen 500 mg tablet 1,000 mg PO Q8H PRN (Reason: pain) Qty: 90 3RF Discharge Instructions Instructions: Lipoma Additional Instructions: Shane, we were able to excise the 3 lipomas today without any issues. As we suspected beforehand, these do appear consistent with simple lipomas. They were well encapsulated, and I am confident that we got all of them out. Just to be safe, I will send them off for testing, but I really do not think there is anything to worry about. You may notice some bruising in the area of the incisions, so do not be alarmed if that happens in the next few days. Heating pads and ice packs will be helpful to control postoperative pain. I also suggest using Tylenol and ibuprofen. I do not think you will need anything more than this, but if you find the pain is really bothersome, please let me know and I can offer a prescription. 1. Resume all of your regular medications. 2. Alternate heating pads and ice packs for 15-minute intervals as needed for pain. 3. Alternate [id number] Tylenol and ibuprofen every 6 hours for the first 2 days. Then use as needed. 4. Leave bandages in place for 24 hours, then remove. 5. Shower with warm soapy water. Pat dry. Use a bandaids if needed to protect your clothing. 6. No soaking or tub baths until I see you in the office. 7. Call the office (or go directly to the emergency room after hours) if you notice any of the following: Develop chills (warm to touch), or if you have a thermometer and your temperature is above 101 Difficulty breathing or difficultly swallowing Persistent vomiting Any bleeding ? exceeding one tablespoon 8. Call your physician if the site where your intravenous was started becomes red, swollen, painful, and warm to touch. Referrals: Braxton Peterson MD [ [facility] STAFF PHYSICIAN] - Activity:: Activity as Tolerated Remove Dressings/Wound Care:: 24 hours Shower/Bathe:: 24 hours Diet:: As Tolerated DS: Diagnosis Discharge Diagnosis (1) Lipoma: Status: Acute Asessment and Plan: Outpatient postoperative follow-up
--- NOTE | 2024-01-25 16:26 | ROE_ITS ---
Date of service: 01/25/24 Time of Service: 16:26 Operative Note Operative Note DATE OF PROCEDURE: 01/25/24 PRE-OP DIAGNOSIS: Lipoma of anterior abdominal wall, and 2 lipomas on left arm POST-OP DIAGNOSIS: same PROCEDURE: Excision and primary closure of abdominal wall lipoma, and left upper extremity lipomas x 2 SURGEON: Braxton Peterson [employer] PROJECTIONIST APPRENTICE: Jacqui Limon ANESTHESIA TYPE: Local By Surgeon and General:No Airway Refer to Anesthesia Record ESTIMATED BLOOD LOSS: 10 PATHOLOGY: other (Lipoma of anterior abdominal wall, lipoma of left forearm, lipoma of left upper arm) COMPLICATIONS: None Patient was transported to: same day Patient's condition: stable Indications: Shane is a 63-year-old male with symptomatic lipomas of the anterior abdominal wall and left upper extremity. They have been causing pain. He is interested in elective excision and primary closure. Findings: Soft tissue masses of the anterior abdominal wall left forearm and left upper arm, all consistent with simple lipomas Procedure Description: After the induction of anesthesia by way of a natural airway, the anterior abdominal wall left upper extremity were prepped and draped. Local anesthesia was then used to establish a generous field block. I started with the anterior abdominal wall lesion. I made a transverse incision over the top portion of the lesion. I dissected down to the skin, and encountered a well encapsulated lipoma. Careful dissection was used to away from the surrounding soft tissues. The mass was completely excised and passed off the field as a lipoma of the anterior abdominal wall. Surgical site was irrigated, the deep tissues were approximated with interrupted 3-0 Vicryl's, and the skin was closed with running subcuticular stitch. Next, I turned my attention to the left arm. Again, local anesthetic was used to establish field block. We started with the left forearm lesion. Skin was incised with a scalpel. Dissection was carried down into the subcutaneous tissues, where another lipoma was encountered. Again, this was circumferentially dissected, and completely excised without any issues. It was hemostatic, and the skin was closed with running subcuticular suture. Similarly, skin and subcutaneous tissues of the upper arm were also blocked with local anesthetic. Skin incision was made, and what appeared to be a simple lipoma was excised from the surrounding soft tissue. Again, this wound was also hemostatic, and closed with running subcuticular stitches. Wound on the anterior abdominal wall was approximately 4 cm long by 2 cm deep. Left forearm incision was approximately 2 cm long by 1 cm deep, and the left upper extremity incision was about 3 cm long by 1-1/2 cm deep.
[2024-01-25 16:49] VITALS: BP 109/75; PULSE 64; RESP 16; TEMP 36.2; O2SAT 99
--- NOTE | 2024-01-25 18:22 | W.ANESPOSTOP ---
Postoperative Evaluation Date, Time and Location Date Performed: 01/25/24 Time Performed: 16:30 Patient Location: Day Surgery Unit Vital Signs Most Recent Imported Vital Signs: Most Recent Vital Signs Temp Pulse Resp BP Pulse Ox 36.2 C L 64 16 109/75 99 01/25/24 16:49 01/25/24 16:49 01/25/24 16:49 01/25/24 16:49 01/25/24 16:49 Pain Score Most Recent Pain Score: Most Recent Pain Score Pain Level 0 01/25/24 16:49 Assessment Mental Status: Awake (Alert & Oriented to Patient Baseline) Airway and Respiratory Function: Patent airway with normal (patient baseline) respiratory exam Cardiovascular Function: Hemodynamically Stable Hydration Status: Adequately Hydrated Nausea & Vomiting: No Nausea or Vomiting Pain: Pt. Denies Any Pain Peripheral Nerve Block: Patient did not receive a nerve block
== END 2024-01-25 16:55 | disposition home or self-care (01) ==
PROVIDERS: PCP Physician Assistant Medical; Visit Provider Surgery
PROC: (CPT 11404; principal; 2024-01-25 14:00)
DX: D17.1 Benign lipomatous neoplasm of skin and subcutaneous tissue of trunk (principal); D17.22 Benign lipomatous neoplasm of skin and subcutaneous tissue of left arm
CPT/HCPCS: 11404; 11403; 11402; 12032; 88304; J2001; J2704

== ENCOUNTER 2024-05-29 14:22 | Outpatient (REF) | payer MEDICARE, SELFPAY ==
[2024-05-28 19:36] LABS: ALT 20 U/L (16-63); AST 15 U/L (15-37); Albumin 3.9 g/dL (3.4-5.0); Alkaline Phosphatase 92 U/L (46-116); Anion Gap 12.2 mmol/L (3-11); BUN 21 mg/dL (7-18); Bilirubin, Total 0.34 mg/dL (0.2-1.0); CO2 22.8 mmol/L (21.0-32.0); CREATININE 1.3 mg/dL (0.70-1.30); Calcium 9.1 mg/dL (8.5-10.1); Calculated LDL 54 mg/dL (<100); Chloride 108 mmol/L (98-107); Cholesterol 126 mg/dL (<200); Estimated GFR 60.96 (mL/min/1.73m2); Glucose 135 mg/dL (74-106); HDL Cholesterol 39 mg/dL (40-60); Potassium 4.1 mmol/L (3.5-5.1); Sodium 143 mmol/L (136-145); Triglyceride 165 mg/dL (<150)
[2024-05-28 19:46] LABS: Hemoglobin A1C 5.7 % (<5.7)
== END 2024-05-29 14:23 | disposition home or self-care (01) ==
LOC: NCHCN 14:22
PROVIDERS: PCP Physician Assistant Medical; Visit Provider Physician Assistant Medical
DX: I10 Essential (primary) hypertension (principal); R73.03 Prediabetes
CPT/HCPCS: 80053; 80061; 83036

== ENCOUNTER 2025-05-29 11:35 | Outpatient (REF) | payer MEDICARE, SELFPAY ==
[2025-05-29 16:44] LABS: Hemoglobin A1C 6.0 % (<5.7)
[2025-05-29 17:29] LABS: ALT 30 U/L (16-63); AST 17 U/L (15-37); Albumin 4.2 g/dL (3.4-5.0); Alkaline Phosphatase 115 U/L (46-116); Anion Gap 13.6 mmol/L (3-11); BUN 21 mg/dL (7-18); Bilirubin, Total 0.5 mg/dL (0.2-1.0); CO2 23.4 mmol/L (21.0-32.0); Calcium 9.1 mg/dL (8.5-10.1); Calculated LDL 89 mg/dL (<100); Chloride 104 mmol/L (98-107); Cholesterol 152 mg/dL (<200); Estimated GFR 83.01 (mL/min/1.73m2); Glucose 99 mg/dL (74-106); HDL Cholesterol 40 mg/dL (>or=40); Potassium 4.2 mmol/L (3.5-5.1); Sodium 141 mmol/L (136-145); Total Protein 7.1 g/dL (6.4-8.2); Triglyceride 118 mg/dL (<150); Vitamin D 25 Total 35 ng/mL (30-100)
[2025-05-30 17:37] LABS: PSA, Screening 0.9 ng/mL (<=4.5)
[2025-05-30 18:22] LABS: Hepatitis C Ab w Rflx HCV PCR Negative (Negative)
== END 2025-05-29 11:36 | disposition home or self-care (01) ==
LOC: NCHCN 11:35
PROVIDERS: PCP Physician Assistant Medical; Visit Provider Physician Assistant Medical
DX: F32.A Depression, unspecified (principal); R73.03 Prediabetes; Z12.5 Encounter for screening for malignant neoplasm of prostate; E78.5 Hyperlipidemia, unspecified
CPT/HCPCS: 80053; 80061; 82306; 84153; 86803; 83036